=== PATIENT | male | born 1955 | race Caucasian/White ===

== ENCOUNTER → 2019-11-17 | Outpatient (CLI) | payer MEDICARE ==
--- NOTE | 2019-11-17 14:52 | Diagnostic Imaging Report ---
CT of the abdomen and pelvis, without contrast, 11/17/2019. History: Kidney stones, left testicular pain. Comparison: None available. Technique: Multidetector CT scanning of the abdomen and pelvis was performed from the level of the lung bases to the inferior pubic rami without intravenous or oral contrast. Coronal and sagittal multiplanar reformations were obtained. RADIATION DOSE: Total DLP: 397 mGy*cm Dose modulation, iterative reconstruction, and/or weight based adjustment of the mA/kV was utilized to reduce the radiation dose to as low as reasonably achievable. Discussion: Examination is limited without contrast. Lung bases: Emphysema and bilateral scarring is noted. Abdomen: A horseshoe kidney is present with multiple bilateral renal calculi, measuring up to 4 mm on the right and 9 mm on the left. Evaluation of the kidneys is limited due to metallic streak artifact from adjacent lumbar surgical hardware. There is no gross evidence of hydronephrosis. A 1.8 cm simple benign cyst is present in the right kidney. A 2.6 cm gallstone is noted. The liver, biliary tree, spleen, pancreas, and adrenal glands are unremarkable. The infrarenal abdominal aorta contains an aortic stent graft. Aortic diameter measures up to 2.1 cm, nonaneurysmal. There is no bowel dilatation. The appendix is visualized and is normal. Diverticuli are present within the distal colon without evidence of adjacent inflammation. There is no evidence of adenopathy or free fluid. Pelvis: The bladder, prostate, and seminal vesicles are unremarkable. Fat-containing bilateral inguinal hernias are present. There is no evidence of free fluid or adenopathy. Bones and soft tissues: Degenerative and postsurgical changes are present within the lumbar spine without evidence of lytic or sclerotic lesion. IMPRESSION: 1. Horseshoe kidney with bilateral renal calculi, left larger than right, without visible hydronephrosis, but evaluation of the kidneys is limited due to metallic streak artifact. Simple benign right renal cyst is also noted. 2. Cholelithiasis. 3. Aortic stent graft is present without evidence of aneurysm. 4. Colonic diverticulosis without evidence of diverticulitis. 5. Bilateral pulmonary emphysema and scarring. Signed by: Michael Boswell on 11/17/2019 2:49 PM
== END ==
LOC: CT 13:26
PROVIDERS: ATTEND Urology
DX: N20.0 Calculus of kidney (principal)
CPT/HCPCS: 74176

== ENCOUNTER → 2019-12-19 | Day surgery (SDC) | payer MEDICARE ==
[2019-12-12 14:54] LABS: BASOPHILS # (AUTO) 0.1 (0.0-0.1); BASOPHILS % 0.9 % (0.0-1.0); EOSINOPHILS # (AUTO) 0.3 (0.0-0.4); EOSINOPHILS % 3.7 % (0.0-6.0); HEMATOCRIT 50.3 % (38.2-49.6); HEMOGLOBIN 16.6 g/dL (14.0-18.0); LYMPHOCYTES % 26.7 % (18.0-39.1); MEAN CORPUSCULAR VOLUME 93.8 fL (81-99); MONOCYTES # (AUTO) 0.7 (0.2-0.8); MONOCYTES % 9.7 % (4.4-11.3); NEUTROPHILS # (AUTO) 4.5 (2.1-6.9); NEUTROPHILS % 58.7 % (38.7-80.0); PLATELET COUNT 221 x10e3/uL (140-360); RED BLOOD COUNT 5.36 x10e6/uL (4.3-5.7); RED CELL DISTRIBUTION WIDTH 13.1 % (11.7-14.4)
--- NOTE | 2019-12-12 15:39 | Diagnostic Imaging Report ---
EXAM: CHEST 2 VIEWS DATE: 12/12/2019 2:27 PM INDICATION: Preoperative evaluation COMPARISON: None FINDINGS: The trachea is midline. The lungs are symmetrically expanded without evidence for large focal consolidation, pneumothorax, or significant pleural effusion. The cardiomediastinal silhouette and pulmonary vasculature are within normal limits. Likely remote/chronic right-sided rib fracture noted. No acute osseous abnormality is identified. The surrounding soft tissues are unremarkable. IMPRESSION: No acute cardiopulmonary process identified. Signed by: Dr. Diony Cohen MD on 12/12/2019 3:36 PM
--- NOTE | 2019-12-12 15:44 | Diagnostic Imaging Report ---
EXAM: ABDOMEN-1VIEW (KUB) DATE: 12/12/2019 2:35 PM INDICATION: Preoperative evaluation. COMPARISON: CT from 11/17/2019 FINDINGS: Bowel gas pattern appears nonobstructive. In this patient with known horseshoe kidney and bilateral nephrolithiasis, there is a 11 mm calcification identified projecting over the left renal shadow. No radiographically evident right-sided renal calculi are appreciated. There are postsurgical changes of the lumbar spine. Stent graft noted within the infrarenal abdominal aorta. There are degenerative changes of the visualized spine. No acute osseous abnormality is identified. IMPRESSION: Left renal calculus. No radiographically evident right renal calculi appreciated. Signed by: Dr. Diony Cohen MD on 12/12/2019 3:41 PM
[~2019-12-19] MED LIST: ACETAMINOPHEN/CODEINE 300MG - 30MG TAB ONE; ASPIR 8181 MG PO; ATORVASTATIN CA20 MG PO; B&O 60MG R/S 60 MG SUPP PR ONE; CEFTRIAXONE SOD 1 GM/NS 50 ML 50 ML IV ONE; CLARITIN-D 241 EACH PO; DEXAMETHASONE SOD PHOS INJ 4 MG/ML VIAL ONE; EPHEDRINE SULFATE INJ 50 MG/ML VIAL ONE; FENTANYL CITRATE/PF 100MCG/2 ML INJ ONE; GABAPENTIN300 MG PO; IOPAMIDOL 300MG/ML 50ML INFUS..BTL IV ONE; LIDOCAINE HCL 2% JELLY 5 ML TUBE ONE; LIDOCAINE HCL 2% LOCAL INJ 5 ML SDV VIAL INJ ONE; METHADONE HCL10 MG PO; METOPROLOL SUCC25 MG PO; MIDAZOLAM HCL 2 MG/2 ML VIAL ONE; ONDANSETRON HCL INJ 2MG/ML 2ML 2 MG/ML VIAL ONE; PANTOPRAZOLE SO40 MG PO; PHENYLEPHRINE HCL 1% 10 MG/ML VIAL ONE; PLAVIX75 MG PO; PRO AIR INH; PROPOFOL IV EMULSION 10 MG/ML 20 ML VIAL ONE; TIZANIDINE HCL4 MG PO; [UNRECOGNIZED DRUG - OTHER] PO
--- OUTSIDE RECORDS SUMMARY | 2019-12-19 05:46 | XMS REPORT ---
[facility] Address Unknown Phone Unavailable Care Team Providers Care Collections Director Name Role Phone JULIO OCONNOR Unavailable Unavailable Payers Payer Name Policy Type Policy Number Effective Date Expiration Date Problems This patient has no known problems. Allergies, Adverse Reactions, Alerts Allergy Name Allergy Type Status Severity Reaction(s) Onset Date Inactive Date Treating Clinician Comments No Known Allergies DA Active U 2018-12-25 00:00:00 No Known Allergies DA Active U 2018-12-07 00:00:00 No Known Allergies DA Active U 2018-11-17 00:00:00 No Known Allergies DA Active U 2016-05-07 00:00:00 Medications This patient has no known medications. Results Test Description Test Time Test Comments Text Results Atomic Results Result Comments [facility] ([facility]) 2019-12-12 15:38:00 [place] [address] Patient Name: VIVIAN VELARDE MR #: [id number] : 1955 Age/Sex: 64/M Req #: [id number] Adm Physician: Ordered by: JULIO OCONNOR MD Report #: [id number] Location: OR Room/Bed: Procedure: [id number] DX/ABDOMEN-1VIEW (KUB) Exam Date: 12/12/19 Exam Time: 1440 REPORT STATUS: Signed EXAM: ABDOMEN-1VIEW (KUB) DATE: 12/12/2019 2:35 PM INDICATION: Preoperative evaluation. COMPARISON: CT from 11/17/2019 FINDINGS: Bowel gas pattern appears nonobstructive. In this patient with known horseshoe kidney and bilateral nephrolithiasis, there is a 11 mm calcification identified projecting over the left renal shadow. No radiographically evident right-sided renal calculi are appreciated. There are postsurgical changes of the lumbar spine. Stent graft noted within the infrarenal abdominal aorta. There are degenerative changes of the visualized spine. No acute osseous abnormality is identified. IMPRESSION: Left renal calculus. No radiographically evident right renal calculi appreciated. Signed by: Dr. Diony Cohen MD on 12/12/2019 3:41 PM Dictated By: DIONY COHEN MD 154 Transcribed By: GERARDO on 12/12/19 154 COPY TO: JULIO OCONNOR MD CHEST 2 VIEWS 2019-12-12 15:34:00 [place] [address] Patient Name: VIVIAN VELARDE MR #: [id number] : 1955 Age/Sex: 64/M Req #: [id number] Adm Physician: Ordered by: JULIO OCONNOR MD Report #: [id number] Location: OR Room/Bed: Procedure: [id number] DX/CHEST 2 VIEWS Exam Date: 12/12/19 Exam Time: 1440 REPORT STATUS: Signed EXAM: CHEST 2 VIEWS DATE: 12/12/2019 2:27 PM INDICATION: Preoperative evaluation COMPARISON: None FINDINGS: The trachea is midline. The lungs are symmetrically expanded without evidence for large focal consolidation, pneumothorax, or significant pleural effusion. The cardiomediastinal silhouette and pulmonary vasculature are within normal limits. Likely remote/chronic right-sided rib fracture noted. No acute osseous abnormality is identified. The surrounding soft tissues are unremarkable. IMPRESSION: No acute cardiopulmonary process identified. Signed by: Dr. Diony Cohen MD on 12/12/2019 3:36 PM Dictated By: DIONY COHEN MD 1536 Transcribed By: GERARDO on 12/12/19 1536 COPY TO: JULIO OCONNOR MD CT ABDOMEN/PELVIS WO 2019-11-17 14:38:00 [place] [address] Patient Name: ANT VELARDE MR #: [id number] : 1955 Age/Sex: 64/M Req #: [id number] [facility] Physician: Ordered by: JULIO OCONNOR MD Report #: [id number] Location: CT Room/Bed: Procedure: [id number] CT/CT ABDOMEN/PELVIS WO Exam Date: 11/17/19 Exam Time: 1400 REPORT STATUS: Signed CT of the abdomen and pelvis, without contrast, 11/17/2019. History: Kidney stones, left testicular pain. Comparison: None available. Technique: Multidetector CT scanning of the abdomen and pelvis was performed from the level of the lung bases to the inferior pubic rami without intravenous or oral contrast. Coronal and sagittal multiplanar reformations were obtained. RADIATION DOSE: Total DLP: 397 mGy*cm Dose modulation, iterative reconstruction, and/or weight based adjustment of the mA/kV was utilized to reduce the radiation dose to as low as reasonably achievable. Discussion: Examination is limited without contrast. Lung bases: Emphysema and bilateral scarring is noted. Abdomen: A horseshoe kidney is present with multiple bilateral renal calculi, measuring up to 4 mm on the right and 9 mm on the left. Evaluation of the kidneys is limited due to metallic streak artifact from adjacent lumbar surgical hardware. There is no gross evidence of hydronephrosis. A 1.8 cm simple benign cyst is present in the right kidney. A 2.6 cm gallstone is noted. The liver, biliary tree, spleen, pancreas, and adrenal glands are unremarkable. The infrarenal abdominal aorta contains an aortic stent graft. Aortic diameter measures up to 2.1 cm, nonaneurysmal. There is no bowel dilatation. The appendix is visualized and is normal. Diverticuli are present within the distal colon without evidence of adjacent inflammation. There is no evidence of adenopathy or free fluid. Pelvis: The bladder, prostate, and seminal vesicles are unremarkable. Fat-containing bilateral inguinal hernias are present. There is no evidence of free fluid or adenopathy. Bones and soft tissues: Degenerative and postsurgical changes are present within the lumbar spine without evidence of lytic or sclerotic lesion. IMPRESSION: 1. Horseshoe kidney with bilateral renal calculi, left larger than right, without visible hydronephrosis, but evaluation of the kidneys is limited due to metallic streak artifact. Simple benign right renal cyst is also noted. 2. Cholelithiasis. 3. Aortic stent graft is present without evidence of aneurysm. 4. Colonic diverticulosis without evidence of diverticulitis. 5. Bilateral pulmonary emphysema and scarring. Signed by: Michael Boswell on 11/17/2019 2:49 PM Dictated By: MICHAEL BOSWELL MD 9615 Transcribed By: GERARDO on 11/17/19 4627 COPY TO: JULIO OCONNOR MD COMPREHENSIVE METABOLIC PANEL 2019-06-21 06:34:00 SODIUM (test code=NA) 145 mmol/L 136-145 POTASSIUM (test code=K) 5.1 mmol/L 3.5-5.1 CHLORIDE (test code=CL) 114.0 mmol/L 98-107 CARBON DIOXIDE (test code=CO2) 21.0 mmol/L 21-32 ANION GAP (test code=GAP) 15.1 10-20 GLUCOSE (test code=GLU) 95 mg/dL 74-106 BLOOD UREA NITROGEN (test code=BUN) 45 mg/dL 7-18 RESULT VERIFIED BY REPEAT ANALYSIS GLOMERULAR FILTRATION RATE (test code=GFR) > 60 mL/min >=60 Estimated GFR by using Modified MDRD formula.Chronic kidney disease is defined as either kidney damageor GFR <60 mL/min/1.73 m2 for >3 months. CREATININE (test code=CREAT) 1.00 mg/dL 0.7-1.3 BUN/CREATININE RATIO (test code=BUN/CREA) 45.0 10-20 TOTAL PROTEIN (test code=PROT) 6.1 gram/dL 6.4-8.2 ALBUMIN (test code=ALB) 3.3 g/dL 3.4-5.0 GLOBULIN (test code=GLOB) 2.8 gram/dL 2.7-4.2 ALBUMIN/GLOBULIN RATIO (test code=A/G) 1.2 0.75-1.50 CALCIUM (test code=CA) 7.3 mg/dL 8.5-10.1 BILIRUBIN TOTAL (test code=BILT) 0.60 mg/dL 0.0-1.0 SGOT/AST (test code=AST) 25 IUnit/L 15-37 SGPT/ALT (test code=ALT) 28 IUnit/L 12-78 ALKALINE PHOSPHATASE TOTAL (test code=ALKP) 74 IUnit/L 45-117 Note change in reference range due to change in reagent. COMPREHENSIVE METABOLIC [id number] 05:52:00* Test Item Value Reference Range Comments SODIUM (test code=NA) 145 mmol/L 136-145 POTASSIUM (test code=K) 5.1 mmol/L 3.5-5.1 CHLORIDE (test code=CL) 114.0 mmol/L 98-107 CARBON DIOXIDE (test code=CO2) mmol/L 21-32 ANION GAP (test code=GAP) 10-20 GLUCOSE (test code=GLU) mg/dL 74-106 BLOOD UREA NITROGEN (test code=BUN) mg/dL 7-18 GLOMERULAR FILTRATION RATE (test code=GFR) mL/min >=60 CREATININE (test code=CREAT) mg/dL 0.7-1.3 BUN/CREATININE RATIO (test code=BUN/CREA) 10-20 TOTAL PROTEIN (test code=PROT) gram/dL 6.4-8.2 ALBUMIN (test code=ALB) g/dL 3.4-5.0 GLOBULIN (test code=GLOB) gram/dL 2.7-4.2 ALBUMIN/GLOBULIN RATIO (test code=A/G) 0.75-1.50 CALCIUM (test code=CA) mg/dL 8.5-10.1 BILIRUBIN TOTAL (test code=BILT) mg/dL 0.0-1.0 SGOT/AST (test code=AST) IUnit/L 15-37 SGPT/ALT (test code=ALT) IUnit/L 12-78 ALKALINE PHOSPHATASE TOTAL (test code=ALKP) IUnit/L 45-117 BASIC METABOLIC [id number] 00:39:00* Test Item Value Reference Range Comments SODIUM (test code=NA) 145 mmol/L 136-145 RESULT VERIFIED BY REPEAT ANALYSIS POTASSIUM (test code=K) 5.0 mmol/L 3.5-5.1 CHLORIDE (test code=CL) 114.0 mmol/L 98-107 CARBON DIOXIDE (test code=CO2) 22.0 mmol/L 21-32 ANION GAP (test code=GAP) 14.0 10-20 GLUCOSE (test code=GLU) 98 mg/dL 74-106 BLOOD UREA NITROGEN (test code=BUN) 57 mg/dL 7-18 RESULT VERIFIED BY REPEAT ANALYSIS GLOMERULAR FILTRATION RATE (test code=GFR) 52 mL/min >=60 Estimated GFR by using Modified MDRD formula.Chronic kidney disease is defined as either kidney damageor GFR <60 mL/min/1.73 m2 for >3 months. CREATININE (test code=CREAT) 1.40 mg/dL 0.7-1.3 BUN/CREATININE RATIO (test code=BUN/CREA) 40.7 10-20 CALCIUM (test code=CA) 7.5 mg/dL 8.5-10.1 BASIC METABOLIC [id number] 00:27:00* Test Item Value Reference Range Comments SODIUM (test code=NA) 145 mmol/L 136-145 RESULT VERIFIED BY REPEAT ANALYSIS POTASSIUM (test code=K) 5.0 mmol/L 3.5-5.1 CHLORIDE (test code=CL) 114.0 mmol/L 98-107 CARBON DIOXIDE (test code=CO2) 22.0 mmol/L 21-32 ANION GAP (test code=GAP) 14.0 10-20 GLUCOSE (test code=GLU) 98 mg/dL 74-106 BLOOD UREA NITROGEN (test code=BUN) 57 mg/dL 7-18 GLOMERULAR FILTRATION RATE (test code=GFR) 52 mL/min >=60 Estimated GFR by using Modified MDRD formula.Chronic kidney disease is defined as either kidney damageor GFR <60 mL/min/1.73 m2 for >3 months. CREATININE (test code=CREAT) 1.40 mg/dL 0.7-1.3 BUN/CREATININE RATIO (test code=BUN/CREA) 40.7 10-20 CALCIUM (test code=CA) 7.5 mg/dL 8.5-10.1 CBC W/AUTO [id number] 00:01:00* Test Item Value Reference Range Comments WHITE BLOOD CELL (test code=WBC) 8.0 K/mm3 4.5-12.5 RED BLOOD CELL (test code=RBC) 4.64 mill/mm3 4.0-5.8 HEMOGLOBIN (test code=HGB) 14.7 gram/dL 13.0-17.5 HEMATOCRIT (test code=HCT) 43.8 % 42.0-52.0 MEAN CELL VOLUME (test code=MCV) 94.4 fL 80-98 MEAN CELL HGB (test code=MCH) 31.7 picogram 27.0-33.0 MEAN CELL HGB CONCETRATION (test code=MCHC) 33.6 gram/dL 33.0-36.0 RED CELL DISTRIBUTION WIDTH (test code=RDW) 14.7 % 11.6-16.2 RED CELL DISTRIBUTION WIDTH SD (test code=RDW-SD) 51.3 fL 37.0-51.0 PLATELET COUNT (test code=PLT) 157 K/mm3 150-450 MEAN PLATELET VOLUME (test code=MPV) 9.8 fL 6.7-11.0 NEUTROPHIL % (test code=NT%) 76.5 % 39.0-69.0 IMMATURE GRANULOCYTE % (test code=IG%) 0.5 % 0.0-5.0 LYMPHOCYTE % (test code=LY%) 12.9 % 25.0-55.0 MONOCYTE % (test code=MO%) 9.0 % 0.0-10.0 EOSINOPHIL % (test code=EO%) 0.6 % 0.0-5.0 BASOPHIL % (test code=BA%) 0.5 % 0.0-1.0 NUCLEATED RBC % (test code=NRBC%) 0.0 % 0-0 NEUTROPHIL # (test code=NT#) 6.15 K/mm3 1.8-7.7 IMMATURE GRANULOCYTE # (test code=IG#) 0.04 x10 3/uL 0-0.03 LYMPHOCYTE # (test code=LY#) 1.04 K/mm3 1.0-5.0 MONOCYTE # (test code=MO#) 0.72 K/mm3 0-0.8 EOSINOPHIL # (test code=EO#) 0.05 K/mm3 0.0-0.5 BASOPHIL # (test code=BA#) 0.04 K/mm3 0.0-0.2 NUCLEATED RBC # (test code=NRBC#) 0.00 K/mm3 0.0-0.1 MANUAL DIFF REQUIRED (test code=MDIFF) NO - US RETROPERITONEAL [id number] 14:53:00 Name: ANT VELARDE [facility] : 1955 Age/S: 63 / M [address] [facility] Unit #: [id number] Loc: [place] [address] Phys: Suzy Benson MD Acct: [id number] Dis Date: Status: ADM IN PHONE #: [phone] Exam Date: 06/20/2019 1145 FAX #: [phone] Reason: Renal failure EXAMS: CPT CODE: [id number] US RETROPERITONEAL COM [id number] REASON FOR EXAM: Renal failure EXAM ORDER DATE: 06/20/2019 10:34 AM Attending Trino: Suzy Benson MD PROCEDURE: - US RETROPERITONEAL COM Comparison: Renal ultrasound May 08, 2016 is available for review FINDINGS: Right kidney: parenchyma echogenicity: Normal echogenicity size: 10.9 x 6.2 x 5.4 cm. stones: 6 mm stone is present in the midpole calyx. cysts/masses: Cortical cyst in the inferior pole with a single thin septation measures up to 2.8 cm in size. A second cyst in the midpole region with a single thin septation measures up to 2.3 cm in size. When compared to the prior exam these cysts demonstrate similar appearance. hydronephrosis: none Left kidney: parenchyma echogenicity: Normal echogenicity size: 14.7 x 6.9 x 5.6 cm. stones: none cysts/masses: none hydronephrosis: none Urinary Bladder: Ureteral jets: Not visualized I ntraluminal masses/debris: None Wall thickness: Normal Outpouching: None IMPRESSION: Minimally complex right-side d renal cysts are redemonstrated and grossly unchanged since 2016. These are likely benign and do not warrant further evaluation. Nonobs tructing right-sided renal stone measuring up to 6 mm. PAGE 1 Signed Report (CONTINUED) Name: ANT VELARDE MAC [facility] : 1955 Age/S: 63 / M [address] [facility] Unit #: [id number] Loc: [place] [address] Phys: Suzy Benson MD Acct: [id number] Dis Date: atus: ADM IN PHONE #: [phone] Exam Ramin e: 06/20/2019 1145 FAX #: [phone] Reason: Renal f ailure EXAMS: CPT CODE: [id number] [facility] [address] <Continued> at 1453 Reported and signed by: Lexa uMrphy MD CC: Suzy Benson MD; Terrence Whelan; Mellisa Chapman MD Technologist: ADRIEN ADEN(R),MARU Trniab Date/Time: 06/20/2019 (4743) [id number] Orig Print D/T: S: 06/20/2019 (9284) Probe: PAGE 2 Signed Report URINALYSIS [id number] 14:28:00* Test Item Value Reference Range Comments UA COLOR (test code=COLU) YELLOW YELLOW UA APPEARANCE (test code=APPU) CLEAR CLEAR UA GLUCOSE DIPSTICK (test code=DGLUU) NEGATIVE mg/dL NEGATIVE UA BILIRUBIN DIPSTICK (test code=BILU) NEGATIVE NEGATIVE UA KETONE DIPSTICK (test code=KETU) NEGATIVE mg/dL NEGATIVE UA SPECIFIC GRAVITY (test code=SGU) 1.010 1.001-1.035 UA BLOOD DIPSTICK (test code=HO) NEGATIVE NEGATIVE UA PH DIPSTICK (test code=MASHA) 5.5 5.0-8.0 UA PROTEIN DIPSTICK (test code=PROU) NEGATIVE mg/dL Neg-15 UA UROBILINIOGEN DIPSTICK (test code=URO) 0.2 mg/dL 0.0-0.2 UA NITRITE DIPSTICK (test code=RANDAL) NEGATIVE NEGATIVE UA LEUKOCYTE ESTERASE W REFLEX (test code=LEUUR) NEGATIVE NEGATIVE UA WBC (test code=WBCU) 0-5 per HPF 0-5 UA RBC (test code=RBCU) 0-2 #/HPF 0-5 UA EPITHELIAL CELLS (test code=EPIU) None seen per HPF Few UA BACTERIA (test code=BACU) FEW #/HPF NONE UA MUCUS (test code=MUCU) FEW #/LPF FEW SPECIMEN COMMENTS: FROM INITIAL BURTON INSERTIONUrine Source? CatheterURINALYSIS [id number] 14:27:00* Test Item Value Reference Range Comments UA COLOR (test code=COLU) YELLOW YELLOW UA APPEARANCE (test code=APPU) CLEAR CLEAR UA GLUCOSE DIPSTICK (test code=DGLUU) NEGATIVE mg/dL NEGATIVE UA BILIRUBIN DIPSTICK (test code=BILU) NEGATIVE NEGATIVE UA KETONE DIPSTICK (test code=KETU) NEGATIVE mg/dL NEGATIVE UA SPECIFIC GRAVITY (test code=SGU) 1.010 1.001-1.035 UA BLOOD DIPSTICK (test code=HO) NEGATIVE NEGATIVE UA PH DIPSTICK (test code=MASHA) 5.5 5.0-8.0 UA PROTEIN DIPSTICK (test code=PROU) NEGATIVE mg/dL Neg-15 UA UROBILINIOGEN DIPSTICK (test code=URO) 0.2 mg/dL 0.0-0.2 UA NITRITE DIPSTICK (test code=RANDAL) NEGATIVE NEGATIVE UA LEUKOCYTE ESTERASE W REFLEX (test code=LEUUR) NEGATIVE NEGATIVE UA WBC (test code=WBCU) 0-5 per HPF 0-5 UA RBC (test code=RBCU) 0-2 #/HPF 0-5 UA EPITHELIAL CELLS (test code=EPIU) per HPF Few UA BACTERIA (test code=BACU) FEW #/HPF NONE UA MUCUS (test code=MUCU) FEW #/LPF FEW SPECIMEN COMMENTS: FROM INITIAL BURTON INSERTIONUrine Source? CatheterURINALYSIS [id number] 14:20:00* Test Item Value Reference Range Comments UA COLOR (test code=COLU) YELLOW UA APPEARANCE (test code=APPU) CLEAR UA BILIRUBIN DIPSTICK (test code=BILU) NEGATIVE UA SPECIFIC GRAVITY (test code=SGU) 1.001-1.035 UA PH DIPSTICK (test code=MASHA) 5.0-8.0 UA UROBILINIOGEN DIPSTICK (test code=URO) mg/dL 0.0-0.2 UA NITRITE DIPSTICK (test code=RANDAL) NEGATIVE UA LEUKOCYTE ESTERASE W REFLEX (test code=LEUUR) NEGATIVE UA WBC (test code=WBCU) 0-5 per HPF 0-5 UA RBC (test code=RBCU) 0-2 #/HPF 0-5 UA EPITHELIAL CELLS (test code=EPIU) per HPF Few UA BACTERIA (test code=BACU) FEW #/HPF NONE UA MUCUS (test code=MUCU) FEW #/LPF FEW SPECIMEN COMMENTS: FROM INITIAL BURTON INSERTIONUrine Source? Catheter COMPREHENSIVE METABOLIC [id number] 13:09:00* Test Item Value Reference Range Comments SODIUM (test code=NA) 140 mmol/L 136-145 RESULT VERIFIED BY REPEAT ANALYSIS POTASSIUM (test code=K) 4.7 mmol/L 3.5-5.1 CHLORIDE (test code=CL) 107.0 mmol/L 98-107 CARBON DIOXIDE (test code=CO2) 21.0 mmol/L 21-32 ANION GAP (test code=GAP) 16.7 10-20 GLUCOSE (test code=GLU) 86 mg/dL 74-106 BLOOD UREA NITROGEN (test code=BUN) 87 mg/dL 7-18 GLOMERULAR FILTRATION RATE (test code=GFR) 16 mL/min >=60 Estimated GFR by using Modified MDRD formula.Chronic kidney disease is defined as either kidney damageor GFR <60 mL/min/1.73 m2 for >3 months. CREATININE (test code=CREAT) 3.80 mg/dL 0.7-1.3 BUN/CREATININE RATIO (test code=BUN/CREA) 23.0 10-20 TOTAL PROTEIN (test code=PROT) 5.5 gram/dL 6.4-8.2 ALBUMIN (test code=ALB) 3.1 g/dL 3.4-5.0 GLOBULIN (test code=GLOB) 2.4 gram/dL 2.7-4.2 ALBUMIN/GLOBULIN RATIO (test code=A/G) 1.3 0.75-1.50 CALCIUM (test code=CA) 7.1 mg/dL 8.5-10.1 BILIRUBIN TOTAL (test code=BILT) 0.50 mg/dL 0.0-1.0 SGOT/AST (test code=AST) 32 IUnit/L 15-37 SGPT/ALT (test code=ALT) 29 IUnit/L 12-78 ALKALINE PHOSPHATASE TOTAL (test code=ALKP) 70 IUnit/L 45-117 Note change in reference range due to change in reagent. URIC [id number] 12:53:00* Test Item Value Reference Range Comments URIC ACID (test code=URIC) 9.9 mg/dL 2.6-7.2 CPK-MB [id number] 12:53:00* Test Item Value Reference Range Comments CREATINE KINASE (CK) (test code=CK) 971 IUnit/L 26-208 CKMB (test code=CKMBT) 21.7 ng/mL 0-6.0 RELATIVE % INDEX (test code=REL%) 2.23 % 0.00-2.50 "If the total CK is elevated, the CKMB Fraction must beinterpreted as a Relative % Index, Normal is less than 2.5%"NOTE: Relative % Index is not valid with a normal total CK. CBC W/AUTO [id number] 12:21:00* Test Item Value Reference Range Comments WHITE BLOOD CELL (test code=WBC) 6.8 K/mm3 4.5-12.5 RED BLOOD CELL (test code=RBC) 4.45 mill/mm3 4.0-5.8 HEMOGLOBIN (test code=HGB) 14.0 gram/dL 13.0-17.5 HEMATOCRIT (test code=HCT) 42.6 % 42.0-52.0 MEAN CELL VOLUME (test code=MCV) 95.7 fL 80-98 MEAN CELL HGB (test code=MCH) 31.5 picogram 27.0-33.0 MEAN CELL HGB CONCETRATION (test code=MCHC) 32.9 gram/dL 33.0-36.0 RED CELL DISTRIBUTION WIDTH (test code=RDW) 14.8 % 11.6-16.2 RED CELL DISTRIBUTION WIDTH SD (test code=RDW-SD) 52.5 fL 37.0-51.0 PLATELET COUNT (test code=PLT) 133 K/mm3 150-450 MEAN PLATELET VOLUME (test code=MPV) 10.1 fL 6.7-11.0 NEUTROPHIL % (test code=NT%) 61.8 % 39.0-69.0 IMMATURE GRANULOCYTE % (test code=IG%) 0.6 % 0.0-5.0 LYMPHOCYTE % (test code=LY%) 23.1 % 25.0-55.0 MONOCYTE % (test code=MO%) 12.2 % 0.0-10.0 EOSINOPHIL % (test code=EO%) 1.6 % 0.0-5.0 BASOPHIL % (test code=BA%) 0.7 % 0.0-1.0 NUCLEATED RBC % (test code=NRBC%) 0.0 % 0-0 NEUTROPHIL # (test code=NT#) 4.20 K/mm3 1.8-7.7 IMMATURE GRANULOCYTE # (test code=IG#) 0.04 x10 3/uL 0-0.03 LYMPHOCYTE # (test code=LY#) 1.57 K/mm3 1.0-5.0 MONOCYTE # (test code=MO#) 0.83 K/mm3 0-0.8 EOSINOPHIL # (test code=EO#) 0.11 K/mm3 0.0-0.5 BASOPHIL # (test code=BA#) 0.05 K/mm3 0.0-0.2 NUCLEATED RBC # (test code=NRBC#) 0.00 K/mm3 0.0-0.1 MANUAL DIFF REQUIRED (test code=MDIFF) NO CBC W/AUTO [id number] 12:20:00* Test Item Value Reference Range Comments WHITE BLOOD CELL (test code=WBC) K/mm3 4.5-12.5 RED BLOOD CELL (test code=RBC) mill/mm3 4.0-5.8 HEMOGLOBIN (test code=HGB) 14.0 gram/dL 13.0-17.5 HEMATOCRIT (test code=HCT) 42.6 % 42.0-52.0 MEAN CELL VOLUME (test code=MCV) fL 80-98 MEAN CELL HGB (test code=MCH) picogram 27.0-33.0 MEAN CELL HGB CONCETRATION (test code=MCHC) gram/dL 33.0-36.0 RED CELL DISTRIBUTION WIDTH (test code=RDW) % 11.6-16.2 RED CELL DISTRIBUTION WIDTH SD (test code=RDW-SD) fL 37.0-51.0 PLATELET COUNT (test code=PLT) K/mm3 150-450 MEAN PLATELET VOLUME (test code=MPV) fL 6.7-11.0 NEUTROPHIL % (test code=NT%) % 39.0-69.0 IMMATURE GRANULOCYTE % (test code=IG%) % 0.0-5.0 LYMPHOCYTE % (test code=LY%) % 25.0-55.0 MONOCYTE % (test code=MO%) % 0.0-10.0 EOSINOPHIL % (test code=EO%) % 0.0-5.0 BASOPHIL % (test code=BA%) % 0.0-1.0 NEUTROPHIL # (test code=NT#) K/mm3 1.8-7.7 LYMPHOCYTE # (test code=LY#) K/mm3 1.0-5.0 MONOCYTE # (test code=MO#) K/mm3 0-0.8 EOSINOPHIL # (test code=EO#) K/mm3 0.0-0.5 BASOPHIL # (test code=BA#) K/mm3 0.0-0.2 SED RATE [id number] 09:45:00* Test Item Value Reference Range Comments SED RATE WESTERGREN (test code=SEDW) 8 mm/hr 0-15 SED [id number] 09:45:00* Test Item Value Reference Range Comments SED RATE (test code=SEDW) 8 mm/hr 0-15 WINTROBE METHOD: NORMAL RANGE FOR MEN: 0-9 MM/HR WOMAN: 0-20 MM/HR [facility] TV=[id number] REACTIVE [id number] 07:23:00* Test Item Value Reference Range Comments C REACTIVE PROTEIN (test code=CRP) 0.33 mg/dL 0-0.3 V.LAB.KAMALJIT 06/20/19 0707URINALYSIS [id number] 04:55:00* Test Item Value Reference Range Comments UA COLOR (test code=COLU) LIGHT YELLOW YELLOW UA APPEARANCE (test code=APPU) CLEAR CLEAR UA GLUCOSE DIPSTICK (test code=DGLUU) NEGATIVE mg/dL NEGATIVE UA BILIRUBIN DIPSTICK (test code=BILU) NEGATIVE NEGATIVE UA KETONE DIPSTICK (test code=KETU) NEGATIVE mg/dL NEGATIVE UA SPECIFIC GRAVITY (test code=SGU) 1.015 1.001-1.035 UA BLOOD DIPSTICK (test code=HO) NEGATIVE NEGATIVE UA PH DIPSTICK (test code=MASHA) 5.5 5.0-8.0 UA PROTEIN DIPSTICK (test code=PROU) NEGATIVE mg/dL Neg-15 UA UROBILINIOGEN DIPSTICK (test code=URO) 0.2 mg/dL 0.0-0.2 UA NITRITE DIPSTICK (test code=RANDAL) NEGATIVE NEGATIVE UA LEUKOCYTE ESTERASE W REFLEX (test code=LEUUR) NEGATIVE NEGATIVE UA WBC (test code=WBCU) 0-5 per HPF 0-5 UA RBC (test code=RBCU) 0-2 #/HPF 0-5 UA EPITHELIAL CELLS (test code=EPIU) None seen per HPF FEW UA BACTERIA (test code=BACU) FEW #/HPF NONE UA HYALINE CAST (test code=HYALU) 3-5 #/LPF 0-5 UA MUCUS (test code=MUCU) FEW #/LPF FEW Urine Source? Clean CatchDRUGS OF ABUSE SCREEN [id number] 04:55:00* Test Item Value Reference Range Comments URN COCAINE (test code=COCAURN) NEGATIVE <300 ng/mL URN CANNABINOIDS (test code=CANNABURN) NEGATIVE <50 ng/mL URN AMPHETAMINE (test code=AMPHETURN) NEGATIVE <1000 ng/mL URN BARBITURATE (test code=BARBITURN) NEGATIVE <200 ng/mL URN BENZODIAZEPINE (test code=BENZOURN) NEGATIVE <200 ng/mL URN OPIATES (test code=OPIATURN) NEGATIVE <300 ng/mL URN PHENCYCLIDINE (PCP) (test code=PHENCURN) NEGATIVE <25 ng/mL URN METHADONE (test code=METHAURN) POSITIVE <300 ng/mL This test provides only a preliminary test result. A morespecific alternate chemical method must be used in order toobtain a confirmed analytical result. Gas chromatography/mass spectrometry (GC/MS) is thepreferred confirmatory method. Other chemical confirmationmethods are available. Clinical consideration and professional judgment should be applied to any drug of abusetest result, particularly when preliminary positive resultsare used.Unconfirmed screening results must not be used fornon-medical purposes (e.g., employment testing, legaltesting). Urine Source? Clean CatchURINALYSIS [id number] 04:29:00* Test Item Value Reference Range Comments UA COLOR (test code=COLU) LIGHT YELLOW YELLOW UA APPEARANCE (test code=APPU) CLEAR CLEAR UA GLUCOSE DIPSTICK (test code=DGLUU) NEGATIVE mg/dL NEGATIVE UA BILIRUBIN DIPSTICK (test code=BILU) NEGATIVE NEGATIVE UA KETONE DIPSTICK (test code=KETU) NEGATIVE mg/dL NEGATIVE UA SPECIFIC GRAVITY (test code=SGU) 1.015 1.001-1.035 UA BLOOD DIPSTICK (test code=HO) NEGATIVE NEGATIVE UA PH DIPSTICK (test code=MASHA) 5.5 5.0-8.0 UA PROTEIN DIPSTICK (test code=PROU) NEGATIVE mg/dL Neg-15 UA UROBILINIOGEN DIPSTICK (test code=URO) 0.2 mg/dL 0.0-0.2 UA NITRITE DIPSTICK (test code=RANDAL) NEGATIVE NEGATIVE UA LEUKOCYTE ESTERASE W REFLEX (test code=LEUUR) NEGATIVE NEGATIVE UA WBC (test code=WBCU) per HPF 0-5 UA RBC (test code=RBCU) per HPF 0-5 UA EPITHELIAL CELLS (test code=EPIU) per HPF Few UA BACTERIA (test code=BACU) per HPF NONE Urine Source? Clean CatchDRUGS OF ABUSE SCREEN [id number] 04:29:00* Test Item Value Reference Range Comments URN COCAINE (test code=COCAURN) <300 ng/mL URN CANNABINOIDS (test code=CANNABURN) <50 ng/mL URN AMPHETAMINE (test code=AMPHETURN) <1000 ng/mL URN BARBITURATE (test code=BARBITURN) <200 ng/mL URN BENZODIAZEPINE (test code=BENZOURN) <200 ng/mL URN OPIATES (test code=OPIATURN) <300 ng/mL URN PHENCYCLIDINE (PCP) (test code=PHENCURN) <25 ng/mL URN METHADONE (test code=METHAURN) <300 ng/mL Urine Source? Clean CatchURINALYSIS [id number] 04:29:00* Test Item Value Reference Range Comments UA COLOR (test code=COLU) LIGHT YELLOW YELLOW UA APPEARANCE (test code=APPU) CLEAR CLEAR UA GLUCOSE DIPSTICK (test code=DGLUU) NEGATIVE mg/dL NEGATIVE UA BILIRUBIN DIPSTICK (test code=BILU) NEGATIVE NEGATIVE UA KETONE DIPSTICK (test code=KETU) NEGATIVE mg/dL NEGATIVE UA SPECIFIC GRAVITY (test code=SGU) 1.015 1.001-1.035 UA BLOOD DIPSTICK (test code=HO) NEGATIVE NEGATIVE UA PH DIPSTICK (test code=MASHA) 5.5 5.0-8.0 UA PROTEIN DIPSTICK (test code=PROU) NEGATIVE mg/dL Neg-15 UA UROBILINIOGEN DIPSTICK (test code=URO) 0.2 mg/dL 0.0-0.2 UA NITRITE DIPSTICK (test code=RANDAL) NEGATIVE NEGATIVE UA LEUKOCYTE ESTERASE W REFLEX (test code=LEUUR) NEGATIVE NEGATIVE UA WBC (test code=WBCU) 0-5 per HPF 0-5 UA RBC (test code=RBCU) 0-2 #/HPF 0-5 UA EPITHELIAL CELLS (test code=EPIU) None seen per HPF FEW UA BACTERIA (test code=BACU) FEW #/HPF NONE UA HYALINE CAST (test code=HYALU) 3-5 #/LPF 0-5 UA MUCUS (test code=MUCU) FEW #/LPF FEW Urine Source? Clean CatchDRUGS OF ABUSE SCREEN [id number] 04:29:00* Test Item Value Reference Range Comments URN COCAINE (test code=COCAURN) <300 ng/mL URN CANNABINOIDS (test code=CANNABURN) <50 ng/mL URN AMPHETAMINE (test code=AMPHETURN) <1000 ng/mL URN BARBITURATE (test code=BARBITURN) <200 ng/mL URN BENZODIAZEPINE (test code=BENZOURN) <200 ng/mL URN OPIATES (test code=OPIATURN) <300 ng/mL URN PHENCYCLIDINE (PCP) (test code=PHENCURN) <25 ng/mL URN METHADONE (test code=METHAURN) <300 ng/mL Urine Source? Clean CatchBASIC METABOLIC [id number] 00:45:00* Test Item Value Reference Range Comments SODIUM (test code=NA) 135 mmol/L 136-145 RESULT VERIFIED BY REPEAT ANALYSIS POTASSIUM (test code=K) 4.7 mmol/L 3.5-5.1 CHLORIDE (test code=CL) 100.0 mmol/L 98-107 CARBON DIOXIDE (test code=CO2) 22.0 mmol/L 21-32 ANION GAP (test code=GAP) 17.7 10-20 GLUCOSE (test code=GLU) 73 mg/dL 74-106 BLOOD UREA NITROGEN (test code=BUN) 97 mg/dL 7-18 GLOMERULAR FILTRATION RATE (test code=GFR) 8 mL/min >=60 Estimated GFR by using Modified MDRD formula.Chronic kidney disease is defined as either kidney damageor GFR <60 mL/min/1.73 m2 for >3 months. CREATININE (test code=CREAT) 7.10 mg/dL 0.7-1.3 BUN/CREATININE RATIO (test code=BUN/CREA) 13.7 10-20 CALCIUM (test code=CA) 6.6 mg/dL 8.5-10.1 CPK-MB [id number] 00:45:00* Test Item Value Reference Range Comments CREATINE KINASE (CK) (test code=CK) 1434 IUnit/L 26-208 CKMB (test code=CKMBT) 32.7 ng/mL 0-6.0 RELATIVE % INDEX (test code=REL%) 2.28 % 0.00-2.50 "If the total CK is elevated, the CKMB Fraction must beinterpreted as a Relative % Index, Normal is less than 2.5%"NOTE: Relative % Index is not valid with a normal total CK. CALCIUM [id number] 00:45:00* Test Item Value Reference Range Comments CALCIUM IONIZED (test code=TARA) 0.98 mmol/L 1.12-1.32 UR SMEAR EOSINOPHIL [id number] 00:44:00* Test Item Value Reference Range Comments UR SMEAR EOSINOPHIL COUNT (test code=EOSCTU) NONE SEEN per HPF NONE SEEN UR [id number] 00:44:00* Test Item Value Reference Range Comments UR NA,RANDOM (test code=MORRIS) 29 mmol/L 20-110 URINE K, RANDOM (test code=KU) 40.0 mmol/L 12-75 UR CHLORIDE RANDOM (test code=CLU) < 10 mEq/L UR SMEAR EOSINOPHIL [id number] 00:40:00* Test Item Value Reference Range Comments UR SMEAR EOSINOPHIL COUNT (test code=EOSCTU) NONE SEEN per HPF NONE SEEN UR [id number] 00:40:00* Test Item Value Reference Range Comments UR NA,RANDOM (test code=MORRIS) mmol/L 20-110 URINE K, RANDOM (test code=KU) mmol/L 12-75 UR CHLORIDE RANDOM (test code=CLU) mEq/L [id number] 00:38:00* Test Item Value Reference Range Comments PHOSPHORUS (test code=PHOS) 7.0 mg/dL 2.5-4.9 THYROID STIMULATING [id number] 00:38:00* Test Item Value Reference Range Comments THYROID STIMULATING HORMONE (test code=TSH) 0.113 uIU/mL 0.36-3.74 TSH REFERENCE RANGES: EUTHYROID: 0.35 - 4.3 mIU/mL HYPO : > 5.5 mIU/mL HYPER : < 0.35 mIU/mL CPK-MB [id number] 00:26:00* Test Item Value Reference Range Comments CREATINE KINASE (CK) (test code=CK) IUnit/L 26-208 CKMB (test code=CKMBT) ng/mL 0-6.0 RELATIVE % INDEX (test code=REL%) % 0.00-2.50 CALCIUM [id number] 00:26:00* Test Item Value Reference Range Comments CALCIUM IONIZED (test code=TARA) 0.98 mmol/L 1.12-1.32 PROTHROMBIN [id number] 00:26:00* Test Item Value Reference Range Comments PROTHROMBIN TIME PATIENT (test code=PTP) 11.2 seconds 9.0-14.0 INTERNATIONAL NORMAL RATIO (test code=INR) 0.9 0.8-1.2 The therapeutic range for oral anticoagulant therapy formost indications is an international normalized ratio (INR)of between 2.0 and 3.0. The recommended therapeutic INRrange for various clinical situations is listed below: Clinical Situation INR range Pulmonary e mbolism treatment (2.0-3.0)Venous thrombosis treatmentVenous thrombosis prophylaxis (high risk surgery)Prevention of systemic embolism from: Acute myocardial infarction Valvular heart disease Atrial fibrillation Mechanical prosthetic heart valves (2.5-3.5) IS PATIENT ON ANTICOAGULANTS? NCBC W/AUTO [id number] 00:12:00* Test Item Value Reference Range Comments WHITE BLOOD CELL (test code=WBC) 9.2 K/mm3 4.5-12.5 RED BLOOD CELL (test code=RBC) 4.54 mill/mm3 4.0-5.8 HEMOGLOBIN (test code=HGB) 14.4 gram/dL 13.0-17.5 HEMATOCRIT (test code=HCT) 43.0 % 42.0-52.0 MEAN CELL VOLUME (test code=MCV) 94.7 fL 80-98 MEAN CELL HGB (test code=MCH) 31.7 picogram 27.0-33.0 MEAN CELL HGB CONCETRATION (test code=MCHC) 33.5 gram/dL 33.0-36.0 RED CELL DISTRIBUTION WIDTH (test code=RDW) 14.9 % 11.6-16.2 RED CELL DISTRIBUTION WIDTH SD (test code=RDW-SD) 51.5 fL 37.0-51.0 PLATELET COUNT (test code=PLT) 149 K/mm3 150-450 MEAN PLATELET VOLUME (test code=MPV) 9.8 fL 6.7-11.0 NEUTROPHIL % (test code=NT%) 66.6 % 39.0-69.0 IMMATURE GRANULOCYTE % (test code=IG%) 0.3 % 0.0-5.0 LYMPHOCYTE % (test code=LY%) 22.5 % 25.0-55.0 MONOCYTE % (test code=MO%) 9.9 % 0.0-10.0 EOSINOPHIL % (test code=EO%) 0.5 % 0.0-5.0 BASOPHIL % (test code=BA%) 0.2 % 0.0-1.0 NUCLEATED RBC % (test code=NRBC%) 0.0 % 0-0 NEUTROPHIL # (test code=NT#) 6.10 K/mm3 1.8-7.7 IMMATURE GRANULOCYTE # (test code=IG#) 0.03 x10 3/uL 0-0.03 LYMPHOCYTE # (test code=LY#) 2.06 K/mm3 1.0-5.0 MONOCYTE # (test code=MO#) 0.91 K/mm3 0-0.8 EOSINOPHIL # (test code=EO#) 0.05 K/mm3 0.0-0.5 BASOPHIL # (test code=BA#) 0.02 K/mm3 0.0-0.2 NUCLEATED RBC # (test code=NRBC#) 0.00 K/mm3 0.0-0.1 MANUAL DIFF REQUIRED (test code=MDIFF) NO ARTERIAL BLOOD [id number] 23:20:00* Test Item Value Reference Range Comments ARTERIAL BLOOD GAS PH (test code=PHA) 7.19 7.35-7.45 Results called to and read back by MELLISA Fisher 23: - 06/19/2019; by [facility] ARTERIAL BLOOD GAS PCO2 (test code=PCO2A) 16.8 mm Hg 35-45 Results called to and read back by MELLISA Fisher 23: - 06/19/2019; by [facility] ARTERIAL BLOOD GAS PO2 (test code=PO2A) < 40.9 mmHg 80-100 Results called to and read back by MELLISA Fisher 23:06/19/2019; by [facility] CERTIFIED MASTER SAFECRACKER BICARBONATE TOTAL HCO3 (test code=HCO3) 6.3 mmol/L 23.0-27.0 Results called to and read back by MELLISA Fisher 23:06/19/2019; [facility] CERTIF[facility] MA[facility] SAFECRACKER BASE EXCESS (test code=BRALUIO) -20.1 mmol/L -3.0-5.0 Results called to and read back by MELLISA Fisher 23:06/19/2019; by [facility] CERTIFIED MASTER SAFECRACKER ABG O2 SATURATION (test code=SATA) 49.3 % 90.0-98.0 ABG TYPE (test code=TYPEA) Arterial FIO2 (test code=FIO2A) 21.0 ABG TEMPERATURE (test code=TEMPA) 37.0 Celsius ABG SITE (test code=SITEA) Rt RADIAL ARTERY MODIFIED ALLENS (test code=MODALL) Yes CHECK PERFORMED HEMATOCRIT (test code=HCT/ABG) 14 % 42-52 TOTAL HGB (test code=THB) 4.8 gram/dL 13.0-17.5 HGB O2 SAT (test code=HBOSAT) 48.7 % 94.00-98.00 CARBOXYHEMOGLOBIN (test code=HOHGBT) 0.3 %totalHg 0.5-1.5 Results called to and read back by MELLISA Fisher 23:06/19/2019; by [facility] CERTIFIED MASTER SAFECRACKER METHEMOGLOBIN (test code=METHGB) 0.9 % 0.0-1.50 URINALYSIS [id number] 23:13:00* Test Item Value Reference Range Comments UA COLOR (test code=COLU) YELLOW UA APPEARANCE (test code=APPU) CLEAR UA BILIRUBIN DIPSTICK (test code=BILU) NEGATIVE UA SPECIFIC GRAVITY (test code=SGU) 1.001-1.035 UA PH DIPSTICK (test code=MASHA) 5.0-8.0 UA UROBILINIOGEN DIPSTICK (test code=URO) mg/dL 0.0-0.2 UA NITRITE DIPSTICK (test code=RANDAL) NEGATIVE UA LEUKOCYTE ESTERASE W REFLEX (test code=LEUUR) NEGATIVE UA WBC (test code=WBCU) 0-5 per HPF 0-5 UA RBC (test code=RBCU) 3-5 #/HPF 0-5 UA EPITHELIAL CELLS (test code=EPIU) None seen per HPF FEW UA BACTERIA (test code=BACU) NONE SEEN #/HPF NONE UA HYALINE CAST (test code=HYALU) 11-20 #/LPF 0-5 UA MUCUS (test code=MUCU) FEW #/LPF FEW Urine Source? MidstreamURINALYSIS [id number] 23:13:00* Test Item Value Reference Range Comments UA COLOR (test code=COLU) LIGHT YELLOW YELLOW UA APPEARANCE (test code=APPU) CLEAR CLEAR UA GLUCOSE DIPSTICK (test code=DGLUU) NEGATIVE mg/dL NEGATIVE UA BILIRUBIN DIPSTICK (test code=BILU) NEGATIVE NEGATIVE UA KETONE DIPSTICK (test code=KETU) NEGATIVE mg/dL NEGATIVE UA SPECIFIC GRAVITY (test code=SGU) 1.025 1.001-1.035 UA BLOOD DIPSTICK (test code=HO) TRACE NEGATIVE UA PH DIPSTICK (test code=MASHA) 5.5 5.0-8.0 UA PROTEIN DIPSTICK (test code=PROU) TRACE (15) mg/dL Neg-15 UA UROBILINIOGEN DIPSTICK (test code=URO) 0.2 mg/dL 0.0-0.2 UA NITRITE DIPSTICK (test code=RANDAL) NEGATIVE NEGATIVE UA LEUKOCYTE ESTERASE W REFLEX (test code=LEUUR) NEGATIVE NEGATIVE UA WBC (test code=WBCU) 0-5 per HPF 0-5 UA RBC (test code=RBCU) 3-5 #/HPF 0-5 UA EPITHELIAL CELLS (test code=EPIU) None seen per HPF FEW UA BACTERIA (test code=BACU) NONE SEEN #/HPF NONE UA HYALINE CAST (test code=HYALU) 11-20 #/LPF 0-5 UA MUCUS (test code=MUCU) FEW #/LPF FEW Urine Source? MidstreamPROCALCITONIN (PCT)2019-06-19 22:19:00* Test Item Value Reference Range Comments PROCALCITONIN (PCT) (test code=PROCAL) 0.33 ng/ml Concentration Interpretation (ng/mL) <0.51 Sepsis is not likely. Local bacterial infection is possible. (LOW RISK for progression to Sepsis) 0.51 - 2.00 Sepsis is possible, but other conditions are known to elevate PCT as well. (MODERATE RISK for progression to Sepsis) > 2.00 Sepsis is likely, unless other causes are known. (HIGH RISK for progression to Severe Sepsis or Septic Shock) 10.00 High likelihood of Severe Sepsis or Septic or higher Shock. *Increased PCT levels may not always be related to systemic bacterial infection.*Low PCT levels do not automatically exclude the presence of bacterial infection.*All results should be interpreted taking into account the patients history. CREATINE KINASE (CK)2019-06-19 21:41:00* Test Item Value Reference Range Comments CREATINE KINASE (CK) (test code=CK) 1512 IUnit/L 26-208 HEPATIC FUNCTION [id number] 20:59:00* Test Item Value Reference Range Comments TOTAL PROTEIN (test code=PROT) 5.8 gram/dL 6.4-8.2 ALBUMIN (test code=ALB) 3.4 g/dL 3.4-5.0 GLOBULIN (test code=GLOB) 2.4 gram/dL 2.7-4.2 ALBUMIN/GLOBULIN RATIO (test code=A/G) 1.4 0.75-1.50 BILIRUBIN TOTAL (test code=BILT) 0.60 mg/dL 0.0-1.0 BILIRUBIN DIRECT (test code=BILD) 0.22 mg/dL 0.0-0.20 SGOT/AST (test code=AST) 40 IUnit/L 15-37 SGPT/ALT (test code=ALT) 31 IUnit/L 12-78 ALKALINE PHOSPHATASE TOTAL (test code=ALKP) 73 IUnit/L 45-117 Note change in reference range due to change in reagent. LACTIC [id number] 20:37:00* Test Item Value Reference Range Comments LACTIC ACID (test code=LACT) 0.7 mmol/L 0.4-1.9 POC LACTIC [id number] 20:22:00* Test Item Value Reference Range Comments POC LACTIC ACID (test code=POCLAC) 0.94 MMOL/L 0.4-2.2 BASIC METABOLIC [id number] 18:14:00* Test Item Value Reference Range Comments SODIUM (test code=NA) 129 mmol/L 136-145 POTASSIUM (test code=K) 5.8 mmol/L 3.5-5.1 CHLORIDE (test code=CL) 94.0 mmol/L 98-107 CARBON DIOXIDE (test code=CO2) 17.0 mmol/L 21-32 ANION GAP (test code=GAP) 23.8 10-20 GLUCOSE (test code=GLU) 79 mg/dL 74-106 BLOOD UREA NITROGEN (test code=BUN) 107 mg/dL 7-18 GLOMERULAR FILTRATION RATE (test code=GFR) 6 mL/min >=60 Estimated GFR by using Modified MDRD formula.Chronic kidney disease is defined as either kidney damageor GFR <60 mL/min/1.73 m2 for >3 months. CREATININE (test code=CREAT) 8.90 mg/dL 0.7-1.3 BUN/CREATININE RATIO (test code=BUN/CREA) 12.0 10-20 CALCIUM (test code=CA) 7.0 mg/dL 8.5-10.1 [id number] 18:14:00* Test Item Value Reference Range Comments TROPONIN-I (test code=TROPI) <0.015 ng/mL 0-0.045 BASIC METABOLIC [id number] 18:05:00* Test Item Value Reference Range Comments SODIUM (test code=NA) 129 mmol/L 136-145 POTASSIUM (test code=K) 5.8 mmol/L 3.5-5.1 CHLORIDE (test code=CL) 94.0 mmol/L 98-107 CARBON DIOXIDE (test code=CO2) mmol/L 21-32 ANION GAP (test code=GAP) 10-20 GLUCOSE (test code=GLU) mg/dL 74-106 BLOOD UREA NITROGEN (test code=BUN) mg/dL 7-18 GLOMERULAR FILTRATION RATE (test code=GFR) mL/min >=60 CREATININE (test code=CREAT) mg/dL 0.7-1.3 BUN/CREATININE RATIO (test code=BUN/CREA) 10-20 CALCIUM (test code=CA) mg/dL 8.5-10.1 [id number] 18:05:00* Test Item Value Reference Range Comments TROPONIN-I (test code=TROPI) ng/mL 0-0.045 B-TYPE NATRIURETIC [id number] 16:36:00* Test Item Value Reference Range Comments B-TYPE NATRIURETIC PEPTIDE (test code=BNP) 5.39 pgram/mL 0-100 CBC W/O [id number] 16:01:00* Test Item Value Reference Range Comments WHITE BLOOD CELL (test code=WBC) 11.8 K/mm3 4.5-12.5 RED BLOOD CELL (test code=RBC) 5.01 mill/mm3 4.0-5.8 HEMOGLOBIN (test code=HGB) 16.0 gram/dL 13.0-17.5 HEMATOCRIT (test code=HCT) 45.8 % 42.0-52.0 MEAN CELL VOLUME (test code=MCV) 91.4 fL 80-98 MEAN CELL HGB (test code=MCH) 31.9 picogram 27.0-33.0 MEAN CELL HGB CONCETRATION (test code=MCHC) 34.9 gram/dL 33.0-36.0 RED CELL DISTRIBUTION WIDTH (test code=RDW) 14.7 % 11.6-16.2 PLATELET COUNT (test code=PLT) 187 K/mm3 150-450 MEAN PLATELET VOLUME (test code=MPV) 10.5 fL 6.7-11.0 CBC W/O [id number] 15:59:00* Test Item Value Reference Range Comments WHITE BLOOD CELL (test code=WBC) K/mm3 4.5-12.5 RED BLOOD CELL (test code=RBC) mill/mm3 4.0-5.8 HEMOGLOBIN (test code=HGB) 16.0 gram/dL 13.0-17.5 HEMATOCRIT (test code=HCT) 45.8 % 42.0-52.0 MEAN CELL VOLUME (test code=MCV) fL 80-98 MEAN CELL HGB (test code=MCH) picogram 27.0-33.0 MEAN CELL HGB CONCETRATION (test code=MCHC) gram/dL 33.0-36.0 RED CELL DISTRIBUTION WIDTH (test code=RDW) % 11.6-16.2 PLATELET COUNT (test code=PLT) K/mm3 150-450 MEAN PLATELET VOLUME (test code=MPV) fL 6.7-11.0 - CT HEAD/BRAIN W/O [id number] 15:04:00 Name: ANT VELARDE JR [facility] : 1955 Age/S: 63 / M [address] Unit #: [id number] Loc: [place] [address] Phys: Syd Aguilera MD Acct: [id number] Dis Date: Status: REG ER PHONE #: [phone] Exam Date: 06/19/2019 1445 FAX #: [phone] Reason: Syncope EXAMS: CPT CODE: [id number] CT HEAD/BRAIN W/O CONT [id number] REASON FOR EXAM: Syncope EXAM ORDER DATE: 06/19/2019 2:34 PM Ordering MEmily: Syd Aguilera MD PROCEDURE: - CT HEAD/BRAIN W/O CONT COMPARISON: 12/27/2018 FINDINGS: CT images of the brain were obtained without IV contrast. Dose modulation, iterative reconstruction, and/or weight based adjustment of the MA/KV was utilized to reduce the radiation dose to as low as reasonably achievable. The brain parenchyma is within normal limits. The sampson-white matter delineation is unremarkable. The ventricles, cisterns, and sulci are unremarkable. There is no evidence of hemorrhage, mass, mass effect. There is no evidence of acute or old infarct. The calvarium is intact. IMPRESSION: Unremarkable brain. at 1504 Reported and signed by: Florentino Vaughan M.D. CC: Syd Aguilera MD; Terrence Whelan Technologist:Tram Victor RT(R)(CT) CTDI: DLP: Trnscb Da te/Time: 06/19/2019 (0421) t.SDR.VTL Orig Print D/T: S: 0 06/19/2019 (3109) PAGE 1 Signed Report - XR CHEST 1 [id number] 15:01:00 FAX: Syd Aguilera MD [phone] [place]: [address] St: REG FAX: Terrence Espinoza [phone] Name: ANT VELARDE JR [facility] : 1955 Age/S: 63/M [address] [facility] Unit #: [id number] Loc: [place] [address] Phys: Syd Aguilera MD Acct: [id number] Dis Date: Status: REG ER PHONE #: [phone] Exam Date: 06/19/2019 1450 FAX #: [phone] Reason: SYNCOPE EXAMS: CPT CODE: [id number] XR CHEST 1 V [id number] REASON FOR EXAM: SYNCOPE EXAM ORDER DATE: 06/19/2019 2:34 PM Ordering M.D.: Syd Aguilera MD PROCEDURE: - XR CHEST 1 V COMPARISON: FINDINGS: Po rtable AP frontal view of the chest obtained at 2:52 PM shows clear lungs without evidence of consolidation. There is no evidence of effusion. The h eart size is within normal limits. Pulmonary vasculatures are unremarkable . Chronic posterior right eighth-ninth rib fractures. IMP RESSION: Hyperinflated lungs suggestive of COPD Electronically Poppy d by Trino Vaughan on 06/19/2019 at 1501 Reported and sig kandice by: Florentino Vaughan M.D. CC: Syd Aguilera MD; Terernce Whelan Technologist: OTF MOE Trnscrd Date/Time/By: 06/19/2019 (6627) : By: ClemL Orig Print D/T: S: 06/19/2019 (4492) PAGE 1 Signed Report BASIC METABOLIC [id number] 05:55:00* Test Item Value Reference Range Comments SODIUM (test code=NA) 138 mmol/L 136-145 POTASSIUM (test code=K) 4.3 mmol/L 3.5-5.1 CHLORIDE (test code=CL) 107.0 mmol/L 98-107 CARBON DIOXIDE (test code=CO2) 26.0 mmol/L 21-32 ANION GAP (test code=GAP) 9.3 10-20 GLUCOSE (test code=GLU) 99 mg/dL 74-106 BLOOD UREA NITROGEN (test code=BUN) 19 mg/dL 7-18 GLOMERULAR FILTRATION RATE (test code=GFR) > 60 mL/min >=60 Estimated GFR by using Modified MDRD formula.Chronic kidney disease is defined as either kidney damageor GFR <60 mL/min/1.73 m2 for >3 months. CREATININE (test code=CREAT) 0.70 mg/dL 0.7-1.3 BUN/CREATININE RATIO (test code=BUN/CREA) 27.1 10-20 CALCIUM (test code=CA) 7.8 mg/dL 8.5-10.1 BASIC METABOLIC [id number] 05:48:00* Test Item Value Reference Range Comments SODIUM (test code=NA) 138 mmol/L 136-145 POTASSIUM (test code=K) 4.3 mmol/L 3.5-5.1 CHLORIDE (test code=CL) 107.0 mmol/L 98-107 CARBON DIOXIDE (test code=CO2) mmol/L 21-32 ANION GAP (test code=GAP) 10-20 GLUCOSE (test code=GLU) mg/dL 74-106 BLOOD UREA NITROGEN (test code=BUN) mg/dL 7-18 GLOMERULAR FILTRATION RATE (test code=GFR) mL/min >=60 CREATININE (test code=CREAT) mg/dL 0.7-1.3 BUN/CREATININE RATIO (test code=BUN/CREA) 10-20 CALCIUM (test code=CA) mg/dL 8.5-10.1 [id number] 21:02:00* Test Item Value Reference Range Comments GLUBED (test code=GLUBED) 126 mg/dL 74-106 Performed by certified beater machine operator at [facility] - CT HEAD/BRAIN W/O [id number] 18:02:00 Name: ANT VELARDE [facility] : 1955 Age/S: 63 / M [address] [facility] Unit #: [id number] Loc: [place] [address] Phys: Priscilla Mohamud MD Acct: [id number] Dis Date: Status: ADM IN PHONE #: [phone] Exam Date: 12/27/2018 1754 FAX #: [phone] Reason: syncope EXAMS: CPT CODE: [id number] CT HEAD/BRAIN W/O CONT [id number] HISTORY: syncope TECHNIQUE: Noncontrast 2.[address] of the head. Examination acquired within 24 hours of arrival. Automated exposure control for dose reduction. COMPARISON: None FINDINGS: No acute hemorrhage. No intracranial mass, mass effect, or midline shift. No CT evidence of acute infarct. Sampson-white matter differentiation is preserved. No hydrocephalus. No extra-axial fluid collection. Visualized paranasal sinuses are clear. Mastoid air cells and middle ear cavities are clear. Orbital contents are unremarkable. Calvarium and skull base are intact. IMPRESSION: No acute intracranial abnormality. at 1802 Reported and signed by: Malachi Tanner M.D. CC: Priscilla Mohamud MD; Terrence Whelan; Rakan Woodard Si, MD Technologist:Zee Forman cia RT(R) CTDI: DLP: Trnscb Date/Time: 12/27/2018 (1801 ) t.SDR.PB10 Orig Print D/T: S: 12/27/2018 (1804) CT DI: DLP: PAGE 1 Signed Report [id number] 16:11:00* Test Item Value Reference Range Comments GLUBED (test code=GLUBED) 124 mg/dL 74-106 Performed by certified beater machine operator at [facility] CBC W/MANUAL [id number] 06:28:00* Test Item Value Reference Range Comments WHITE BLOOD CELL (test code=WBC) 4.5 K/mm3 4.5-12.5 RED BLOOD CELL (test code=RBC) 4.11 mill/mm3 4.0-5.8 HEMOGLOBIN (test code=HGB) 12.7 gram/dL 13.0-17.5 HEMATOCRIT (test code=HCT) 39.5 % 42.0-52.0 MEAN CELL VOLUME (test code=MCV) 96.1 fL 80-98 MEAN CELL HGB (test code=MCH) 30.9 picogram 27.0-33.0 MEAN CELL HGB CONCETRATION (test code=MCHC) 32.2 gram/dL 33.0-36.0 RED CELL DISTRIBUTION WIDTH (test code=RDW) 13.5 % 11.6-16.2 RED CELL DISTRIBUTION WIDTH SD (test code=RDW-SD) 47.8 fL 37.0-51.0 PLATELET COUNT (test code=PLT) 126 K/mm3 150-450 MEAN PLATELET VOLUME (test code=MPV) 10.4 fL 6.7-11.0 IMMATURE GRANULOCYTE % (test code=IG%) 0.4 % 0.0-5.0 NUCLEATED RBC % (test code=NRBC%) 0.0 % 0-0 NEUTROPHIL # (test code=NT#) 2.67 K/mm3 1.8-7.7 IMMATURE GRANULOCYTE # (test code=IG#) 0.02 x10 3/uL 0-0.03 LYMPHOCYTE # (test code=LY#) 1.42 K/mm3 1.0-5.0 MONOCYTE # (test code=MO#) 0.34 K/mm3 0-0.8 EOSINOPHIL # (test code=EO#) 0.07 K/mm3 0.0-0.5 BASOPHIL # (test code=BA#) 0.02 K/mm3 0.0-0.2 NUCLEATED RBC # (test code=NRBC#) 0.00 K/mm3 0.0-0.1 MANUAL DIFF REQUIRED (test code=MDIFF) YES STAIN ACCEPTABILITY (test code=STN ACCEPTABLE) STAIN ACCEPTABLE TOTAL CELLS COUNTED (test code=TCC) 115 #CELLS SEGMENTED NEUTROPHILS (test code=SEG) 62.6 % 39-69 BAND NEUTROPHIL (test code=BAND) 0 % 0-10 LYMPHOCYTE (test code=LYMPH) 30.4 % 25-55 REACTIVE LYMPH (test code=RELYMPH) 0 % MONOCYTE (test code=MON) 3.5 % 0-10 EOSINOPHIL (test code=EOS) 0.9 % 0.0-5.0 BASOPHIL (test code=BASO) 0 % 0-1.0 METAMYELOCYTE (test code=META) 0 % 0-0 MYELOCYTE (test code=MYELO) 1.7 % 0.0-0.0 PROMYELOCYTE (test code=PROM) 0 % 0-0 PLATELET ESTIMATE (test code=PLTEST) ADEQUATE PLATELET MORPHOLOGY (test code=PLTMORPH) NORMAL IMMATURE FORMS (test code=IMMAT) 0.9 % COMPREHENSIVE METABOLIC [id number] 05:52:00* Test Item Value Reference Range Comments SODIUM (test code=NA) 137 mmol/L 136-145 POTASSIUM (test code=K) 4.3 mmol/L 3.5-5.1 CHLORIDE (test code=CL) 107.0 mmol/L 98-107 CARBON DIOXIDE (test code=CO2) 23.0 mmol/L 21-32 ANION GAP (test code=GAP) 11.3 10-20 GLUCOSE (test code=GLU) 95 mg/dL 74-106 BLOOD UREA NITROGEN (test code=BUN) 15 mg/dL 7-18 GLOMERULAR FILTRATION RATE (test code=GFR) > 60 mL/min >=60 Estimated GFR by using Modified MDRD formula.Chronic kidney disease is defined as either kidney damageor GFR <60 mL/min/1.73 m2 for >3 months. CREATININE (test code=CREAT) 0.80 mg/dL 0.7-1.3 BUN/CREATININE RATIO (test code=BUN/CREA) 18.8 10-20 TOTAL PROTEIN (test code=PROT) 5.5 gram/dL 6.4-8.2 ALBUMIN (test code=ALB) 2.6 g/dL 3.4-5.0 GLOBULIN (test code=GLOB) 2.9 gram/dL 2.7-4.2 ALBUMIN/GLOBULIN RATIO (test code=A/G) 0.9 0.75-1.50 CALCIUM (test code=CA) 7.8 mg/dL 8.5-10.1 BILIRUBIN TOTAL (test code=BILT) 0.40 mg/dL 0.0-1.0 SGOT/AST (test code=AST) 44 IUnit/L 15-37 SGPT/ALT (test code=ALT) 63 IUnit/L 12-78 ALKALINE PHOSPHATASE TOTAL (test code=ALKP) 85 IUnit/L 45-117 Note change in reference range due to change in reagent. LIPID PROFILE (CORONARY RISK)2018-12-27 05:52:00* Test Item Value Reference Range Comments TRIGLYCERIDES (test code=TRIG) 106 mg/dL 20-150 CHOLESTEROL (test code=CHOL) 57 mg/dL 0-200 CHOLESTEROL/HDL RATIO (test code=CHOLHDL) 2.0 RATIO 0-4.9 RISK ASSOCIATED WITH CHOL/HDL RATIOS: Risk Male Female1/2 AVERAGE 3.43 3.27AVERAGE 4.97 4.442X AVERAGE 9.55 7.053X AVERAGE 23.39 11.04 REFERENCE VALUE IS RELATED TO RISK LEVELS ASRECOMMENDED BY THE [facility]. HEART, LUNG, AND BLOOD INST. HDL CHOLESTEROL (test code=HDL) 20 mg/dL 40-60 LIPOPROTEIN LDL (test code=LDL) 35 mg/dL 100-129 Reference Interval: mg/dL mmol/L Optimal <100 <2.6Near/above optimal 100-129 2.6- 3.3Borderline High 130-159 3.4-4.1High 160-189 4.1-4.9Very High >=190 >=4.9=========This LDL result is a direct measurement.========= THYROID STIMULATING [id number] 05:52:00* Test Item Value Reference Range Comments THYROID STIMULATING HORMONE (test code=TSH) 1.380 uIU/mL 0.36-3.74 TSH REFERENCE RANGES: EUTHYROID: 0.35 - 4.3 mIU/mL HYPO : > 5.5 mIU/mL HYPER : < 0.35 mIU/mL COMPREHENSIVE METABOLIC [id number] 05:32:00* Test Item Value Reference Range Comments SODIUM (test code=NA) 137 mmol/L 136-145 POTASSIUM (test code=K) 4.3 mmol/L 3.5-5.1 CHLORIDE (test code=CL) 107.0 mmol/L 98-107 CARBON DIOXIDE (test code=CO2) mmol/L 21-32 ANION GAP (test code=GAP) 10-20 GLUCOSE (test code=GLU) mg/dL 74-106 BLOOD UREA NITROGEN (test code=BUN) mg/dL 7-18 GLOMERULAR FILTRATION RATE (test code=GFR) mL/min >=60 CREATININE (test code=CREAT) mg/dL 0.7-1.3 BUN/CREATININE RATIO (test code=BUN/CREA) 10-20 TOTAL PROTEIN (test code=PROT) gram/dL 6.4-8.2 ALBUMIN (test code=ALB) g/dL 3.4-5.0 GLOBULIN (test code=GLOB) gram/dL 2.7-4.2 ALBUMIN/GLOBULIN RATIO (test code=A/G) 0.75-1.50 CALCIUM (test code=CA) mg/dL 8.5-10.1 BILIRUBIN TOTAL (test code=BILT) mg/dL 0.0-1.0 SGOT/AST (test code=AST) IUnit/L 15-37 SGPT/ALT (test code=ALT) IUnit/L 12-78 ALKALINE PHOSPHATASE TOTAL (test code=ALKP) IUnit/L 45-117 LIPID PROFILE (CORONARY RISK)2018-12-27 05:32:00* Test Item Value Reference Range Comments TRIGLYCERIDES (test code=TRIG) mg/dL 20-150 CHOLESTEROL (test code=CHOL) mg/dL 0-200 CHOLESTEROL/HDL RATIO (test code=CHOLHDL) RATIO 0-4.9 HDL CHOLESTEROL (test code=HDL) mg/dL 40-60 LIPOPROTEIN LDL (test code=LDL) mg/dL 100-129 THYROID STIMULATING [id number] 05:32:00* Test Item Value Reference Range Comments THYROID STIMULATING HORMONE (test code=TSH) uIU/mL 0.36-3.74 CBC W/MANUAL [id number] 05:21:00* Test Item Value Reference Range Comments WHITE BLOOD CELL (test code=WBC) 4.5 K/mm3 4.5-12.5 RED BLOOD CELL (test code=RBC) 4.11 mill/mm3 4.0-5.8 HEMOGLOBIN (test code=HGB) 12.7 gram/dL 13.0-17.5 HEMATOCRIT (test code=HCT) 39.5 % 42.0-52.0 MEAN CELL VOLUME (test code=MCV) 96.1 fL 80-98 MEAN CELL HGB (test code=MCH) 30.9 picogram 27.0-33.0 MEAN CELL HGB CONCETRATION (test code=MCHC) 32.2 gram/dL 33.0-36.0 RED CELL DISTRIBUTION WIDTH (test code=RDW) 13.5 % 11.6-16.2 RED CELL DISTRIBUTION WIDTH SD (test code=RDW-SD) 47.8 fL 37.0-51.0 PLATELET COUNT (test code=PLT) 126 K/mm3 150-450 MEAN PLATELET VOLUME (test code=MPV) 10.4 fL 6.7-11.0 IMMATURE GRANULOCYTE % (test code=IG%) 0.4 % 0.0-5.0 NUCLEATED RBC % (test code=NRBC%) 0.0 % 0-0 NEUTROPHIL # (test code=NT#) 2.67 K/mm3 1.8-7.7 IMMATURE GRANULOCYTE # (test code=IG#) 0.02 x10 3/uL 0-0.03 LYMPHOCYTE # (test code=LY#) 1.42 K/mm3 1.0-5.0 MONOCYTE # (test code=MO#) 0.34 K/mm3 0-0.8 EOSINOPHIL # (test code=EO#) 0.07 K/mm3 0.0-0.5 BASOPHIL # (test code=BA#) 0.02 K/mm3 0.0-0.2 NUCLEATED RBC # (test code=NRBC#) 0.00 K/mm3 0.0-0.1 MANUAL DIFF REQUIRED (test code=MDIFF) YES STAIN ACCEPTABILITY (test code=STN ACCEPTABLE) TOTAL CELLS COUNTED (test code=TCC) #CELLS SEGMENTED NEUTROPHILS (test code=SEG) % 39-69 LYMPHOCYTE (test code=LYMPH) % 25-55 MONOCYTE (test code=MON) % 0-10 EOSINOPHIL (test code=EOS) % 0.0-5.0 CABOT RINGS (test code=CAB) MORPHOLOGY COMMENT (test code=MOC) PLATELET ESTIMATE (test code=PLTEST) PLATELET MORPHOLOGY (test code=PLTMORPH) CBC W/MANUAL [id number] 05:21:00* Test Item Value Reference Range Comments WHITE BLOOD CELL (test code=WBC) 4.5 K/mm3 4.5-12.5 RED BLOOD CELL (test code=RBC) 4.11 mill/mm3 4.0-5.8 HEMOGLOBIN (test code=HGB) 12.7 gram/dL 13.0-17.5 HEMATOCRIT (test code=HCT) 39.5 % 42.0-52.0 MEAN CELL VOLUME (test code=MCV) 96.1 fL 80-98 MEAN CELL HGB (test code=MCH) 30.9 picogram 27.0-33.0 MEAN CELL HGB CONCETRATION (test code=MCHC) 32.2 gram/dL 33.0-36.0 RED CELL DISTRIBUTION WIDTH (test code=RDW) 13.5 % 11.6-16.2 RED CELL DISTRIBUTION WIDTH SD (test code=RDW-SD) 47.8 fL 37.0-51.0 PLATELET COUNT (test code=PLT) 126 K/mm3 150-450 MEAN PLATELET VOLUME (test code=MPV) 10.4 fL 6.7-11.0 IMMATURE GRANULOCYTE % (test code=IG%) 0.4 % 0.0-5.0 NUCLEATED RBC % (test code=NRBC%) 0.0 % 0-0 NEUTROPHIL # (test code=NT#) 2.67 K/mm3 1.8-7.7 IMMATURE GRANULOCYTE # (test code=IG#) 0.02 x10 3/uL 0-0.03 LYMPHOCYTE # (test code=LY#) 1.42 K/mm3 1.0-5.0 MONOCYTE # (test code=MO#) 0.34 K/mm3 0-0.8 EOSINOPHIL # (test code=EO#) 0.07 K/mm3 0.0-0.5 BASOPHIL # (test code=BA#) 0.02 K/mm3 0.0-0.2 NUCLEATED RBC # (test code=NRBC#) 0.00 K/mm3 0.0-0.1 MANUAL DIFF REQUIRED (test code=MDIFF) YES STAIN ACCEPTABILITY (test code=STN ACCEPTABLE) TOTAL CELLS COUNTED (test code=TCC) #CELLS SEGMENTED NEUTROPHILS (test code=SEG) % 39-69 LYMPHOCYTE (test code=LYMPH) % 25-55 MONOCYTE (test code=MON) % 0-10 EOSINOPHIL (test code=EOS) % 0.0-5.0 CABOT RINGS (test code=CAB) MORPHOLOGY COMMENT (test code=MOC) PLATELET ESTIMATE (test code=PLTEST) PLATELET MORPHOLOGY (test code=PLTMORPH) CBC W/MANUAL [id number] 05:21:00* Test Item Value Reference Range Comments WHITE BLOOD CELL (test code=WBC) 4.5 K/mm3 4.5-12.5 RED BLOOD CELL (test code=RBC) 4.11 mill/mm3 4.0-5.8 HEMOGLOBIN (test code=HGB) 12.7 gram/dL 13.0-17.5 HEMATOCRIT (test code=HCT) 39.5 % 42.0-52.0 MEAN CELL VOLUME (test code=MCV) 96.1 fL 80-98 MEAN CELL HGB (test code=MCH) 30.9 picogram 27.0-33.0 MEAN CELL HGB CONCETRATION (test code=MCHC) 32.2 gram/dL 33.0-36.0 RED CELL DISTRIBUTION WIDTH (test code=RDW) 13.5 % 11.6-16.2 RED CELL DISTRIBUTION WIDTH SD (test code=RDW-SD) 47.8 fL 37.0-51.0 PLATELET COUNT (test code=PLT) 126 K/mm3 150-450 MEAN PLATELET VOLUME (test code=MPV) 10.4 fL 6.7-11.0 IMMATURE GRANULOCYTE % (test code=IG%) 0.4 % 0.0-5.0 NUCLEATED RBC % (test code=NRBC%) 0.0 % 0-0 NEUTROPHIL # (test code=NT#) 2.67 K/mm3 1.8-7.7 IMMATURE GRANULOCYTE # (test code=IG#) 0.02 x10 3/uL 0-0.03 LYMPHOCYTE # (test code=LY#) 1.42 K/mm3 1.0-5.0 MONOCYTE # (test code=MO#) 0.34 K/mm3 0-0.8 EOSINOPHIL # (test code=EO#) 0.07 K/mm3 0.0-0.5 BASOPHIL # (test code=BA#) 0.02 K/mm3 0.0-0.2 NUCLEATED RBC # (test code=NRBC#) 0.00 K/mm3 0.0-0.1 MANUAL DIFF REQUIRED (test code=MDIFF) YES STAIN ACCEPTABILITY (test code=STN ACCEPTABLE) TOTAL CELLS COUNTED (test code=TCC) #CELLS SEGMENTED NEUTROPHILS (test code=SEG) % 39-69 LYMPHOCYTE (test code=LYMPH) % 25-55 MONOCYTE (test code=MON) % 0-10 EOSINOPHIL (test code=EOS) % 0.0-5.0 MORPHOLOGY COMMENT (test code=MOC) PLATELET ESTIMATE (test code=PLTEST) PLATELET MORPHOLOGY (test code=PLTMORPH) CBC W/MANUAL [id number] 05:21:00* Test Item Value Reference Range Comments WHITE BLOOD CELL (test code=WBC) 4.5 K/mm3 4.5-12.5 RED BLOOD CELL (test code=RBC) 4.11 mill/mm3 4.0-5.8 HEMOGLOBIN (test code=HGB) 12.7 gram/dL 13.0-17.5 HEMATOCRIT (test code=HCT) 39.5 % 42.0-52.0 MEAN CELL VOLUME (test code=MCV) 96.1 fL 80-98 MEAN CELL HGB (test code=MCH) 30.9 picogram 27.0-33.0 MEAN CELL HGB CONCETRATION (test code=MCHC) 32.2 gram/dL 33.0-36.0 RED CELL DISTRIBUTION WIDTH (test code=RDW) 13.5 % 11.6-16.2 RED CELL DISTRIBUTION WIDTH SD (test code=RDW-SD) 47.8 fL 37.0-51.0 PLATELET COUNT (test code=PLT) 126 K/mm3 150-450 MEAN PLATELET VOLUME (test code=MPV) 10.4 fL 6.7-11.0 IMMATURE GRANULOCYTE % (test code=IG%) 0.4 % 0.0-5.0 NUCLEATED RBC % (test code=NRBC%) 0.0 % 0-0 NEUTROPHIL # (test code=NT#) 2.67 K/mm3 1.8-7.7 IMMATURE GRANULOCYTE # (test code=IG#) 0.02 x10 3/uL 0-0.03 LYMPHOCYTE # (test code=LY#) 1.42 K/mm3 1.0-5.0 MONOCYTE # (test code=MO#) 0.34 K/mm3 0-0.8 EOSINOPHIL # (test code=EO#) 0.07 K/mm3 0.0-0.5 BASOPHIL # (test code=BA#) 0.02 K/mm3 0.0-0.2 NUCLEATED RBC # (test code=NRBC#) 0.00 K/mm3 0.0-0.1 MANUAL DIFF REQUIRED (test code=MDIFF) YES STAIN ACCEPTABILITY (test code=STN ACCEPTABLE) TOTAL CELLS COUNTED (test code=TCC) #CELLS SEGMENTED NEUTROPHILS (test code=SEG) % 39-69 LYMPHOCYTE (test code=LYMPH) % 25-55 MONOCYTE (test code=MON) % 0-10 MORPHOLOGY COMMENT (test code=MOC) PLATELET ESTIMATE (test code=PLTEST) PLATELET MORPHOLOGY (test code=PLTMORPH) CBC W/MANUAL [id number] 05:21:00* Test Item Value Reference Range Comments WHITE BLOOD CELL (test code=WBC) 4.5 K/mm3 4.5-12.5 RED BLOOD CELL (test code=RBC) 4.11 mill/mm3 4.0-5.8 HEMOGLOBIN (test code=HGB) 12.7 gram/dL 13.0-17.5 HEMATOCRIT (test code=HCT) 39.5 % 42.0-52.0 MEAN CELL VOLUME (test code=MCV) 96.1 fL 80-98 MEAN CELL HGB (test code=MCH) 30.9 picogram 27.0-33.0 MEAN CELL HGB CONCETRATION (test code=MCHC) 32.2 gram/dL 33.0-36.0 RED CELL DISTRIBUTION WIDTH (test code=RDW) 13.5 % 11.6-16.2 RED CELL DISTRIBUTION WIDTH SD (test code=RDW-SD) 47.8 fL 37.0-51.0 PLATELET COUNT (test code=PLT) 126 K/mm3 150-450 MEAN PLATELET VOLUME (test code=MPV) 10.4 fL 6.7-11.0 IMMATURE GRANULOCYTE % (test code=IG%) 0.4 % 0.0-5.0 NUCLEATED RBC % (test code=NRBC%) 0.0 % 0-0 NEUTROPHIL # (test code=NT#) 2.67 K/mm3 1.8-7.7 IMMATURE GRANULOCYTE # (test code=IG#) 0.02 x10 3/uL 0-0.03 LYMPHOCYTE # (test code=LY#) 1.42 K/mm3 1.0-5.0 MONOCYTE # (test code=MO#) 0.34 K/mm3 0-0.8 EOSINOPHIL # (test code=EO#) 0.07 K/mm3 0.0-0.5 BASOPHIL # (test code=BA#) 0.02 K/mm3 0.0-0.2 NUCLEATED RBC # (test code=NRBC#) 0.00 K/mm3 0.0-0.1 MANUAL DIFF REQUIRED (test code=MDIFF) YES STAIN ACCEPTABILITY (test code=STN ACCEPTABLE) TOTAL CELLS COUNTED (test code=TCC) #CELLS SEGMENTED NEUTROPHILS (test code=SEG) % 39-69 LYMPHOCYTE (test code=LYMPH) % 25-55 MONOCYTE (test code=MON) % 0-10 EOSINOPHIL (test code=EOS) % 0.0-5.0 CABOT RINGS (test code=CAB) MORPHOLOGY COMMENT (test code=MOC) PLATELET ESTIMATE (test code=PLTEST) PLATELET MORPHOLOGY (test code=PLTMORPH) - CTA [id number] 01:16:00 Name: [place] : 1955 Age/S: 63 / M [address] [facility] Unit #: [id number] Loc: [place] [address] Phys: Patti Gordon MD Acct: [id number] Dis Date: Status: ADM IN PHONE #: [phone] Exam Date: 12/26/2018 8805 FAX #: [phone] Reason: syncope EXAMS: CPT CODE: [id number] CTA HEAD 90426 HISTORY: Syncope Technique: Axial tomograms through the brain were obtained after intravenous contrast utilizing a CTA protocol. Three- dimensional and multiplanar reformatted images are provided. One or more of the following dose reduction techniques were used: Automated exposure control, adjustment of the mA and/or kV according to patient size, and/or utilization of iterative reconstruction technique. Location: C3 COMPARISON:None FINDINGS: CTA BRAIN: The visualized intracranial internal carotid arteries are patent. The anterior cerebral arteries and middle cerebral arteries are patent bilaterally. No aneurysm identified. No large vessel occlusion or significant intracranial stenosis. An anterior communicating artery is demonstrated. The distal vertebral arteries, basilar artery, and posterior cerebral arteries are patent. The major intracranial venous sinuses are patent. IMPRESSION: 1. No large vessel occlusion. No significant intracranial vascular abnormality identified. at 0116 Reported and signed by: Terrence Whitfield MD CC: Patti Gordon MD; Sharon Anderson MD; Terrence Whelan Technologist:RT ISSA CTDI: DLP: Trnscb Date/Time: 12/27/2018 (0116) [email or web address] Orig Print D/T: S: 12/27/2018 (0119) CTDI: DLP: PAGE 1 Signed Report [id number] 18:42:00* Test Item Value Reference Range Comments TROPONIN-I (test code=TROPI) 0.198 ng/mL 0-0.045 [id number] 13:47:00* Test Item Value Reference Range Comments TROPONIN-I (test code=TROPI) 0.072 ng/mL 0-0.045 [email or web address].KNG1 12/26/18 1346Critical results verified and read back by Nurse? Y [id number] 07:17:00* Test Item Value Reference Range Comments TROPONIN-I (test code=TROPI) 0.062 ng/mL 0-0.045 Results previously called [id number] 02:53:00* Test Item Value Reference Range Comments TROPONIN-I (test code=TROPI) 0.061 ng/mL 0-0.045 PREVIOUSLY CALLED BASIC METABOLIC [id number] 02:30:00* Test Item Value Reference Range Comments SODIUM (test code=NA) 139 mmol/L 136-145 POTASSIUM (test code=K) 4.8 mmol/L 3.5-5.1 CHLORIDE (test code=CL) 110.0 mmol/L 98-107 CARBON DIOXIDE (test code=CO2) 25.0 mmol/L 21-32 ANION GAP (test code=GAP) 8.8 10-20 GLUCOSE (test code=GLU) 123 mg/dL 74-106 BLOOD UREA NITROGEN (test code=BUN) 19 mg/dL 7-18 GLOMERULAR FILTRATION RATE (test code=GFR) > 60 mL/min >=60 Estimated GFR by using Modified MDRD formula.Chronic kidney disease is defined as either kidney damageor GFR <60 mL/min/1.73 m2 for >3 months. CREATININE (test code=CREAT) 1.00 mg/dL 0.7-1.3 BUN/CREATININE RATIO (test code=BUN/CREA) 19.0 10-20 CALCIUM (test code=CA) 7.1 mg/dL 8.5-10.1 CBC W/AUTO [id number] 02:03:00* Test Item Value Reference Range Comments WHITE BLOOD CELL (test code=WBC) 4.9 K/mm3 4.5-12.5 RED BLOOD CELL (test code=RBC) 3.97 mill/mm3 4.0-5.8 HEMOGLOBIN (test code=HGB) 12.1 gram/dL 13.0-17.5 RESULT VERIFIED BY REPEAT ANALYSIS HEMATOCRIT (test code=HCT) 39.5 % 42.0-52.0 MEAN CELL VOLUME (test code=MCV) 99.5 fL 80-98 MEAN CELL HGB (test code=MCH) 30.5 picogram 27.0-33.0 MEAN CELL HGB CONCETRATION (test code=MCHC) 30.6 gram/dL 33.0-36.0 RED CELL DISTRIBUTION WIDTH (test code=RDW) 13.7 % 11.6-16.2 RED CELL DISTRIBUTION WIDTH SD (test code=RDW-SD) 50.6 fL 37.0-51.0 PLATELET COUNT (test code=PLT) 143 K/mm3 150-450 MEAN PLATELET VOLUME (test code=MPV) 10.5 fL 6.7-11.0 NEUTROPHIL % (test code=NT%) 72.2 % 39.0-69.0 IMMATURE GRANULOCYTE % (test code=IG%) 0.4 % 0.0-5.0 LYMPHOCYTE % (test code=LY%) 18.5 % 25.0-55.0 MONOCYTE % (test code=MO%) 7.7 % 0.0-10.0 EOSINOPHIL % (test code=EO%) 1.0 % 0.0-5.0 BASOPHIL % (test code=BA%) 0.2 % 0.0-1.0 NUCLEATED RBC % (test code=NRBC%) 0.0 % 0-0 NEUTROPHIL # (test code=NT#) 3.55 K/mm3 1.8-7.7 IMMATURE GRANULOCYTE # (test code=IG#) 0.02 x10 3/uL 0-0.03 LYMPHOCYTE # (test code=LY#) 0.91 K/mm3 1.0-5.0 MONOCYTE # (test code=MO#) 0.38 K/mm3 0-0.8 EOSINOPHIL # (test code=EO#) 0.05 K/mm3 0.0-0.5 BASOPHIL # (test code=BA#) 0.01 K/mm3 0.0-0.2 NUCLEATED RBC # (test code=NRBC#) 0.00 K/mm3 0.0-0.1 DRUGS OF ABUSE SCREEN [id number] 19:28:00* Test Item Value Reference Range Comments UA PH DIPSTICK (test code=MASHA) 5.0 5.0-8.0 URN COCAINE (test code=COCAURN) NEGATIVE <300 ng/mL URN CANNABINOIDS (test code=CANNABURN) NEGATIVE <50 ng/mL URN AMPHETAMINE (test code=AMPHETURN) NEGATIVE <1000 ng/mL URN BARBITURATE (test code=BARBITURN) NEGATIVE <200 ng/mL URN BENZODIAZEPINE (test code=BENZOURN) NEGATIVE <200 ng/mL URN OPIATES (test code=OPIATURN) NEGATIVE <300 ng/mL URN PHENCYCLIDINE (PCP) (test code=PHENCURN) NEGATIVE <25 ng/mL URN METHADONE (test code=METHAURN) POSITIVE <300 ng/mL This test provides only a preliminary test result. A morespecific alternate chemical method must be used in order toobtain a confirmed analytical result. Gas chromatography/mass spectrometry (GC/MS) is thepreferred confirmatory method. Other chemical confirmationmethods are available. Clinical consideration and professional judgment should be applied to any drug of abusetest result, particularly when preliminary positive resultsare used.Unconfirmed screening results must not be used fornon-medical purposes (e.g., employment testing, legaltesting). [id number] 19:10:00* Test Item Value Reference Range Comments TROPONIN-I (test code=TROPI) 0.053 ng/mL 0-0.045 Results called to [id number] by [facility]. 12/25/18 1910Critical results verified and read back by Nurse? Y DRUGS OF ABUSE SCREEN [id number] 19:01:00* Test Item Value Reference Range Comments UA PH DIPSTICK (test code=MASHA) 5.0 5.0-8.0 URN COCAINE (test code=COCAURN) <300 ng/mL URN CANNABINOIDS (test code=CANNABURN) <50 ng/mL URN AMPHETAMINE (test code=AMPHETURN) <1000 ng/mL URN BARBITURATE (test code=BARBITURN) <200 ng/mL URN BENZODIAZEPINE (test code=BENZOURN) <200 ng/mL URN OPIATES (test code=OPIATURN) <300 ng/mL URN PHENCYCLIDINE (PCP) (test code=PHENCURN) <25 ng/mL URN METHADONE (test code=METHAURN) <300 ng/mL [id number] 18:55:00* Test Item Value Reference Range Comments GLYCOSYLATED HEMOGLOBIN (HA1C) (test code=GLYHGB) 5.9 % HbA1 4.8-6.0 ESTIMATED AVERAGE GLUCOSE (test code=EAG) 123 MG/DL URINALYSIS [id number] 16:21:00* Test Item Value Reference Range Comments UA COLOR (test code=COLU) JEWELL YELLOW UA APPEARANCE (test code=APPU) Cloudy CLEAR UA GLUCOSE DIPSTICK (test code=DGLUU) NEGATIVE mg/dL NEGATIVE UA BILIRUBIN DIPSTICK (test code=BILU) 1+ (Small 0.5-1.0) mg/dL NEGATIVE UA KETONE DIPSTICK (test code=KETU) 5 (Trace) mg/dL NEGATIVE UA SPECIFIC GRAVITY (test code=SGU) 1.025 1.001-1.035 UA BLOOD DIPSTICK (test code=HO) Negative NEGATIVE UA PH DIPSTICK (test code=MASHA) 5.0 5.0-8.0 UA PROTEIN DIPSTICK (test code=PROU) 100 (2+) mg/dL NEGATIVE UA UROBILINIOGEN DIPSTICK (test code=URO) 4.0 mg/dL 0.0-0.2 UA NITRITE DIPSTICK (test code=RANDAL) NEGATIVE NEGATIVE UA LEUKOCYTE ESTERASE W REFLEX (test code=LEUUR) TRACE NEGATIVE UA WBC (test code=WBCU) 11-20 #/HPF 0-5 UA RBC (test code=RBCU) 11-20 #/HPF 0-5 UA EPITHELIAL CELLS (test code=EPIU) FEW per HPF FEW UA BACTERIA (test code=BACU) FEW #/HPF NONE UA HYALINE CAST (test code=HYALU) 11-20 #/LPF 0-5 UA MUCUS (test code=MUCU) FEW #/LPF FEW UA AMORPHOUS SEDIMENT (test code=AMORU) FEW #/LPF Urine Source? Clean CatchB-TYPE NATRIURETIC [id number] 13:44:00* Test Item Value Reference Range Comments B-TYPE NATRIURETIC PEPTIDE (test code=BNP) 58.26 pgram/mL 0-100 BASIC METABOLIC [id number] 13:43:00* Test Item Value Reference Range Comments SODIUM (test code=NA) 139 mmol/L 136-145 POTASSIUM (test code=K) 4.0 mmol/L 3.5-5.1 CHLORIDE (test code=CL) 105.0 mmol/L 98-107 CARBON DIOXIDE (test code=CO2) 28.0 mmol/L 21-32 ANION GAP (test code=GAP) 10.0 10-20 GLUCOSE (test code=GLU) 114 mg/dL 74-106 BLOOD UREA NITROGEN (test code=BUN) 22 mg/dL 7-18 GLOMERULAR FILTRATION RATE (test code=GFR) 52 mL/min >=60 Estimated GFR by using Modified MDRD formula.Chronic kidney disease is defined as either kidney damageor GFR <60 mL/min/1.73 m2 for >3 months. CREATININE (test code=CREAT) 1.40 mg/dL 0.7-1.3 BUN/CREATININE RATIO (test code=BUN/CREA) 15.7 10-20 CALCIUM (test code=CA) 8.5 mg/dL 8.5-10.1 HEPATIC FUNCTION [id number] 13:43:00* Test Item Value Reference Range Comments TOTAL PROTEIN (test code=PROT) 6.4 gram/dL 6.4-8.2 ALBUMIN (test code=ALB) 3.3 g/dL 3.4-5.0 GLOBULIN (test code=GLOB) 3.1 gram/dL 2.7-4.2 ALBUMIN/GLOBULIN RATIO (test code=A/G) 1.1 0.75-1.50 BILIRUBIN TOTAL (test code=BILT) 0.50 mg/dL 0.0-1.0 BILIRUBIN DIRECT (test code=BILD) 0.20 mg/dL 0.0-0.20 SGOT/AST (test code=AST) 31 IUnit/L 15-37 SGPT/ALT (test code=ALT) 36 IUnit/L 12-78 ALKALINE PHOSPHATASE TOTAL (test code=ALKP) 90 IUnit/L 45-117 Note change in reference range due to change in reagent. CREATINE KINASE (CK)2018-12-25 13:43:00* Test Item Value Reference Range Comments CREATINE KINASE (CK) (test code=CK) 148 IUnit/L 26-208 [id number] 13:43:00* Test Item Value Reference Range Comments LIPASE (test code=LIP) 44 U/L 73.0-393.0 [id number] 13:43:00* Test Item Value Reference Range Comments MAGNESIUM (test code=MAG) 1.8 mg/dL 1.8-2.4 [id number] 13:43:00* Test Item Value Reference Range Comments TROPONIN-I (test code=TROPI) 0.026 ng/mL 0-0.045 [id number] 13:43:00* Test Item Value Reference Range Comments ALCOHOL (test code=ALC) < 3 mg/dL 0.0-3.0 INTERPRETIVE DATA NOTE: POSITIVE SCREENING RESULTS SHOULD BE CONSIDERED PRESUMPTIVE.WHEN COLLECTED FOR MEDICAL PURPOSES ONLY. SPECIMEN WILL NOTBE COLLECTED BY CHAIN OF CUSTODY.IF A CONFIRMATION OF POSITIVE RESULTS IS DESIRED, ACONFIRMATION TEST MUST BE REQUESTED BY THE PHYSICIAN AT ANADDITIONAL CHARGE TO THE PATIENT. PROTHROMBIN [id number] 13:33:00* Test Item Value Reference Range Comments PROTHROMBIN TIME PATIENT (test code=PTP) 12.4 seconds 9.0-14.0 INTERNATIONAL NORMAL RATIO (test code=INR) 1.1 0.8-1.2 The therapeutic range for oral anticoagulant therapy formost indications is an international normalized ratio (INR)of between 2.0 and 3.0. The recommended therapeutic INRrange for various clinical situations is listed below: Clinical Situation INR range Pulmonary e mbolism treatment (2.0-3.0)Venous thrombosis treatmentVenous thrombosis prophylaxis (high risk surgery)Prevention of systemic embolism from: Acute myocardial infarction Valvular heart disease Atrial fibrillation Mechanical prosthetic heart valves (2.5-3.5) IS PATIENT ON ANTICOAGULANTS? NTHROMBOPLASTIN TIME [id number] 13:33:00* Test Item Value Reference Range Comments THROMBOPLASTIN TIME PARTIAL (test code=PTT) 28.5 seconds 25.0-36.5 IS PATIENT ON ANTICOAGULANTS? NBASIC METABOLIC [id number] 13:29:00* Test Item Value Reference Range Comments SODIUM (test code=NA) 139 mmol/L 136-145 POTASSIUM (test code=K) 4.0 mmol/L 3.5-5.1 CHLORIDE (test code=CL) 105.0 mmol/L 98-107 CARBON DIOXIDE (test code=CO2) mmol/L 21-32 ANION GAP (test code=GAP) 10-20 GLUCOSE (test code=GLU) mg/dL 74-106 BLOOD UREA NITROGEN (test code=BUN) mg/dL 7-18 GLOMERULAR FILTRATION RATE (test code=GFR) mL/min >=60 CREATININE (test code=CREAT) mg/dL 0.7-1.3 BUN/CREATININE RATIO (test code=BUN/CREA) 10-20 CALCIUM (test code=CA) mg/dL 8.5-10.1 HEPATIC FUNCTION [id number] 13:29:00* Test Item Value Reference Range Comments TOTAL PROTEIN (test code=PROT) gram/dL 6.4-8.2 ALBUMIN (test code=ALB) g/dL 3.4-5.0 GLOBULIN (test code=GLOB) gram/dL 2.7-4.2 ALBUMIN/GLOBULIN RATIO (test code=A/G) 0.75-1.50 BILIRUBIN TOTAL (test code=BILT) mg/dL 0.0-1.0 BILIRUBIN DIRECT (test code=BILD) mg/dL 0.0-0.20 SGOT/AST (test code=AST) IUnit/L 15-37 SGPT/ALT (test code=ALT) IUnit/L 12-78 ALKALINE PHOSPHATASE TOTAL (test code=ALKP) IUnit/L 45-117 CREATINE KINASE (CK)2018-12-25 13:29:00* Test Item Value Reference Range Comments CREATINE KINASE (CK) (test code=CK) IUnit/L 26-208 [id number] 13:29:00* Test Item Value Reference Range Comments LIPASE (test code=LIP) U/L 73.0-393.0 [id number] 13:29:00* Test Item Value Reference Range Comments MAGNESIUM (test code=MAG) mg/dL 1.8-2.4 [id number] 13:29:00* Test Item Value Reference Range Comments TROPONIN-I (test code=TROPI) ng/mL 0-0.045 [id number] 13:29:00* Test Item Value Reference Range Comments ALCOHOL (test code=ALC) mg/dL 0-3 CBC W/O [id number] 13:20:00* Test Item Value Reference Range Comments WHITE BLOOD CELL (test code=WBC) 8.4 K/mm3 4.5-12.5 RED BLOOD CELL (test code=RBC) 4.69 mill/mm3 4.0-5.8 HEMOGLOBIN (test code=HGB) 14.3 gram/dL 13.0-17.5 HEMATOCRIT (test code=HCT) 45.5 % 42.0-52.0 MEAN CELL VOLUME (test code=MCV) 97.0 fL 80-98 MEAN CELL HGB (test code=MCH) 30.5 picogram 27.0-33.0 MEAN CELL HGB CONCETRATION (test code=MCHC) 31.4 gram/dL 33.0-36.0 RED CELL DISTRIBUTION WIDTH (test code=RDW) 13.5 % 11.6-16.2 PLATELET COUNT (test code=PLT) 165 K/mm3 150-450 MEAN PLATELET VOLUME (test code=MPV) 10.0 fL 6.7-11.0 - XR CHEST 1 [id number] 13:06:00 FAX: Debbie Pratt [phone] [place]: St: REG FAX: Terrence Espinoza [phone] Name: ANT VELARDE [facility] : 1955 Age/S: 63/M [address] [facility] Unit #: [id number] Loc: [place] [address] Phys: Debbie Arredondo MD Acct: [id number] Dis Date: Status: REG ER PHONE #: [phone] Exam Date: 12/25/2018 1248 FAX #: [phone] Reason: WEAKNESS EXAMS: CPT CODE: [id number] XR CHEST 1 V [id number] HISTORY: Weakness. COMPARISON: December 07, 2018. No acute infiltrates, effusion or congestion is noted. Hyperinflation. Cardiomegaly. IMPRESSION: No acute infiltrates, effusion or congestion. at 1303 Reported and signed by: Christian Mcmillan M.D. CC: Debbie Arredondo MD; Terrence Whelan Technologist: ARMIN ABREU (R) Trnscrd Date/Time/By: 12/25/2018 (9950) : By: [email or web address] Orig Print D/T: S: 12/25/2018 (3484) PAGE 1 Signed Report PROTHROMBIN TIME 2018-12-08 07:50:00* Test Item Value Reference Range Comments PROTHROMBIN TIME PATIENT (test code=PTP) 12.1 SECONDS 9.3-12.9 INTERNATIONAL NORMAL RATIO (test code=INR) 1.1 0.8-1.2 TARGET INR BY INDICATION Indication INR1. Prophylaxis of venous thrombosis 2.0 - 3.0 (orthopedic surgery), Prophylaxis of venous thrombosis (other than high-risk surgery), Treatment of Deep Vein Thrombosis/Pulmonary Embolism, Prevention of systemic embolism - Tissue heart valves, Acute Myocardial Infarction (to prevent systemic embolism), Valvular heart disease, Atrial Fibrillation, Bileaflet mechanical valve in aortic position.2. Mechanical prosthetic valves (high risk), 2.5 - 3.5 Presence of Lupus Anticoagulant or Antiphospholipid Antibodies, Prevention of systemic embolism - Acute Myocardial Infarction (to prevent recurrent infarct). - XR CHEST 2 [id number] 11:27:00 FAX: Terrence Espinoza [phone] [place]: St: PRE FAX: Bianca Palm FAX: Nikolas Marte MD [phone] Name: PRACHIANT PARK [facility] : 1955 Age/S: 63/M [address] [place] [address] Unit #: [id number] Loc: [place] [address] Phys: Bianca Palm NP Acct: [id number] Dis Date: Status: PRE [facility] [place] #: [phone] Exam Date: 12/07/2018 1122 FAX #: [phone] Reason: PRE-OP EXAMS: CPT CODE: [id number] XR CHEST 2 V 88994 CHEST RADIOGRA PHS - PA AND LATERAL: COMPARISON: November 17, 2018 CLINICAL HISTORY: PRE-OP The cardiopericardial silhouette is with in normal limits. No acute infiltrate is seen in the lungs. There are a few old healed right-sided rib fractures. Min imal contour bulge in the left lower lobe retrocardiac region is again see n. This may be due to a tiny hiatal hernia versus spondylotic changes in t he lower thoracic spine. IMPRESSION: No acute pulmonary abnormality. Please see above for details. at 1127 Reported and signed by: Gabriele Barragan M.D. CC: Terrence Whelan; Bianca Palm STORE SALES CONSULTANT; Nikolas Madrigal MD Technologist: RT Taz(Sergio)(M) Trnscrd Date/Time/By: 12/07/2018 (1127) : By: [email or web address] Orig Print D/T: S: 12/07/2018 (8689) PAGE 1 Signed Report BASIC METABOLIC [id number] 11:06:00* Test Item Value Reference Range Comments SODIUM (test code=NA) 142 mEq/L 134-147 POTASSIUM (test code=K) 4.0 mEq/L 3.4-5.0 CHLORIDE (test code=CL) 108 mEq/L 100-108 CARBON DIOXIDE (test code=CO2) 31 mEq/L 21-33 ANION GAP (test code=GAP) 7 0-20 GLUCOSE (test code=GLU) 86 mg/dL 70-110 BLOOD UREA NITROGEN (test code=BUN) 20 mg/dL 7-18 GLOMERULAR FILTRATION RATE (test code=GFR) 98.3 80-90 Units of measure=ml/min/1.73 m2 CREATININE (test code=CREAT) 0.8 mg/dL 0.6-1.3 CALCIUM (test code=CA) 8.6 mg/dL 8.0-10.5 CBC W/AUTO [id number] 10:51:00* Test Item Value Reference Range Comments WHITE BLOOD CELL (test code=WBC) 7.45 x10 3/uL 4.5-11.0 RED BLOOD CELL (test code=RBC) 4.64 x10 6/uL 4.00-5.60 HEMOGLOBIN (test code=HGB) 14.7 g/dL 12.5-16.9 HEMATOCRIT (test code=HCT) 45.9 % 37.5-50.7 MEAN CELL VOLUME (test code=MCV) 98.9 fL 81.0-99.0 MEAN CELL HGB (test code=MCH) 31.7 pg 27.0-33.0 MEAN CELL HGB CONCETRATION (test code=MCHC) 32.0 g/dL 33.0-37.0 RED CELL DISTRIBUTION WIDTH CV (test code=RDW) 12.9 % 11.5-14.5 RED CELL DISTRIBUTION WIDTH SD (test code=RDW-SD) 46.3 fL 37.0-54.0 PLATELET COUNT (test code=PLT) 210 x10 3/uL 150-400 MEAN PLATELET VOLUME (test code=MPV) 9.9 fL 7.0-9.0 NEUTROPHIL % (test code=NT%) 49.0 % 56.0-77.0 IMMATURE GRANULOCYTE % (test code=IG%) 0.5 % 0.0-2.0 LYMPHOCYTE % (test code=LY%) 33.7 % 14.0-32.0 MONOCYTE % (test code=MO%) 11.4 % 4.8-9.0 EOSINOPHIL % (test code=EO%) 4.6 % 0.3-3.7 BASOPHIL % (test code=BA%) 0.8 % 0.0-2.0 NUCLEATED RBC % (test code=NRBC%) 0.0 % 0-0 NEUTROPHIL # (test code=NT#) 3.65 x10 3/uL 2.0-7.6 IMMATURE GRANULOCYTE # (test code=IG#) 0.04 x10 3/uL 0.00-0.03 LYMPHOCYTE # (test code=LY#) 2.51 x10 3/uL 1.0-3.8 MONOCYTE # (test code=MO#) 0.85 x10 3/uL 0.1-0.8 EOSINOPHIL # (test code=EO#) 0.34 x10 3/uL 0.0-0.2 BASOPHIL # (test code=BA#) 0.06 x10 3/uL 0.0-0.2 NUCLEATED RBC # (test code=NRBC#) 0.00 x10 3/uL 0.0-0.1 MANUAL DIFF REQUIRED (test code=MDIFF) NO COAGULATION TIME [id number] 09:00:00* Test Item Value Reference Range Comments COAGULATION TIME ACTIVATED (test code=ACT) 442 SECONDS 105-167 COAGULATION TIME [id number] 09:00:00* Test Item Value Reference Range Comments COAGULATION TIME ACTIVATED (test code=ACT) 195 SECONDS 105-167 BASIC METABOLIC [id number] 08:53:00* Test Item Value Reference Range Comments SODIUM (test code=NA) 143 mEq/L 134-147 POTASSIUM (test code=K) 4.6 mEq/L 3.4-5.0 CHLORIDE (test code=CL) 107 mEq/L 100-108 CARBON DIOXIDE (test code=CO2) 33 mEq/L 21-33 ANION GAP (test code=GAP) 8 0-20 GLUCOSE (test code=GLU) 108 mg/dL 70-110 BLOOD UREA NITROGEN (test code=BUN) 19 mg/dL 7-18 GLOMERULAR FILTRATION RATE (test code=GFR) 85.8 80-90 Units of measure=ml/min/1.73 m2 CREATININE (test code=CREAT) 0.9 mg/dL 0.6-1.3 CALCIUM (test code=CA) 9.8 mg/dL 8.0-10.5 - XR CHEST 2 [id number] 08:53:00 FAX: Terrence Espinoza [phone] [place]: St: [facility] FAX: Aayush Bassett MD [phone] Name: PRACHIANT VIVIAN [facility] : 1955 Age/S: 63/M [address] [place] [address] Unit #: [id number] Loc: [place] [address] Phys: Aayush Norman MD Acct: [id number] Dis Date: Status: [facility] PHONE #: [phone] Exam Date: 11/17/2018 0846 FAX #: [phone] Reason: PREOP EXAMS: CPT CODE: [id number] XR CHEST 2 V 00839 CHEST RADIOGRAPHS - PA AND LATERAL: COMPARISON: None CLINICAL HISTORY: PREOP The cardiopericardial silhouette is within normal limits. No acute infiltrate is seen in the lungs. No vascular congestion or pneumothorax. There are old fractures involving the posterior right eighth and ninth ribs. A small 3 cm contour bulge/soft tissue density is seen in the left lower lobe retrocardiac region, adjacent to the lower thoracic spine. This may represent a small hiatal hernia. IMPRESSION: No acute pulmonary abnormality. Small retrocardiac soft tissue density which may represent a small hiatal hernia. If clinically indicated, consider CT chest for further assessment. at 0853 Reported and signed by: Gabriele Barragan M.D. CC: Terrence Whelan; Aayush Norman MD Technologist: RT Janet(R) Trnscrd Date/Time/By: 11/17/2018 (0853) : By: [email or web address] Orig Print D/T: S: 11/17/2018 (0856) PAGE 1 Signed Report - XR CHEST 2 [id number] 08:53:00 FAX: Terrence Espinoza [phone] [place]: St: PRE FAX: Aayush Bassett MD [phone] Name: KRISH VELARDE [facility] : 1955 Age/S: 63/M [address] [place] [address] Unit #: [id number] Loc: [place] [address] Phys: Aayush Norman MD Acct: [id number] Dis Date: Status: PRE [facility] [place]ONE #: [phone] Exam Date: 11/17/2018 0846 FAX #: [phone] Reason: PREOP EXAMS: CPT CODE: [id number] XR CHEST 2 V 23925 CHEST RADIOGRAPHS - PA AND LATERAL: COMPARISON: None CLINICAL HISTORY: PREOP The cardiopericardial silhouette is within normal limits. No acute infiltrate is seen in the lungs. No vascular congestion or pneumothorax. There are old fractures involving the posterior right eighth and ninth ribs. A small 3 cm contour bulge/soft tissue density is seen in the left lower lobe retrocardiac region, adjacent to the lower thoracic spine. This may represent a small hiatal hernia. IMPRESSION: No acute pulmonary abnormality. Small retrocardiac soft tissue density which may represent a small hiatal hernia. If clinically indicated, consider CT chest for further assessment. at 0853 Reported and signed by: Gabriele Barragan M.D. CC: Terrence Whelan; Aayush Norman MD Technologist: RT Janet(R) Trnscrd Date/Time/By: 11/17/2018 (0853) : By: [email or web address] Orig Print D/T: S: 11/17/2018 (0856) PAGE 1 Signed Report PROTHROMBIN [id number] 08:49:00* Test Item Value Reference Range Comments PROTHROMBIN TIME PATIENT (test code=PTP) 10.4 SECONDS 9.3-12.9 INTERNATIONAL NORMAL RATIO (test code=INR) 0.9 0.8-1.2 TARGET INR BY INDICATION Indication INR1. Prophylaxis of venous thrombosis 2.0 - 3.0 (orthopedic surgery), Prophylaxis of venous thrombosis (other than high-risk surgery), Treatment of Deep Vein Thrombosis/Pulmonary Embolism, Prevention of systemic embolism - Tissue heart valves, Acute Myocardial Infarction (to prevent systemic embolism), Valvular heart disease, Atrial Fibrillation, Bileaflet mechanical valve in aortic position.2. Mechanical prosthetic valves (high risk), 2.5 - 3.5 Presence of Lupus Anticoagulant or Antiphospholipid Antibodies, Prevention of systemic embolism - Acute Myocardial Infarction (to prevent recurrent infarct). CBC W/AUTO [id number] 08:40:00* Test Item Value Reference Range Comments WHITE BLOOD CELL (test code=WBC) 6.29 x10 3/uL 4.5-11.0 RED BLOOD CELL (test code=RBC) 5.30 x10 6/uL 4.00-5.60 HEMOGLOBIN (test code=HGB) 17.0 g/dL 12.5-16.9 HEMATOCRIT (test code=HCT) 52.9 % 37.5-50.7 MEAN CELL VOLUME (test code=MCV) 99.8 fL 81.0-99.0 MEAN CELL HGB (test code=MCH) 32.1 pg 27.0-33.0 MEAN CELL HGB CONCETRATION (test code=MCHC) 32.1 g/dL 33.0-37.0 RED CELL DISTRIBUTION WIDTH CV (test code=RDW) 12.9 % 11.5-14.5 RED CELL DISTRIBUTION WIDTH SD (test code=RDW-SD) 48.3 fL 37.0-54.0 PLATELET COUNT (test code=PLT) 202 x10 3/uL 150-400 MEAN PLATELET VOLUME (test code=MPV) 10.1 fL 7.0-9.0 NEUTROPHIL % (test code=NT%) 42.3 % 56.0-77.0 IMMATURE GRANULOCYTE % (test code=IG%) 0.2 % 0.0-2.0 LYMPHOCYTE % (test code=LY%) 38.6 % 14.0-32.0 MONOCYTE % (test code=MO%) 10.8 % 4.8-9.0 EOSINOPHIL % (test code=EO%) 6.8 % 0.3-3.7 BASOPHIL % (test code=BA%) 1.3 % 0.0-2.0 NUCLEATED RBC % (test code=NRBC%) 0.0 % 0-0 NEUTROPHIL # (test code=NT#) 2.66 x10 3/uL 2.0-7.6 IMMATURE GRANULOCYTE # (test code=IG#) 0.01 x10 3/uL 0.00-0.03 LYMPHOCYTE # (test code=LY#) 2.43 x10 3/uL 1.0-3.8 MONOCYTE # (test code=MO#) 0.68 x10 3/uL 0.1-0.8 EOSINOPHIL # (test code=EO#) 0.43 x10 3/uL 0.0-0.2 BASOPHIL # (test code=BA#) 0.08 x10 3/uL 0.0-0.2 NUCLEATED RBC # (test code=NRBC#) 0.00 x10 3/uL 0.0-0.1 MANUAL DIFF REQUIRED (test code=MDIFF) NO
[2019-12-19 09:40] VITALS: BP 153/82
--- NOTE | 2019-12-27 23:23 | Operative Report ---
DATE OF PROCEDURE: 12/19/2019 SURGEON: Federico Smith MD PREOPERATIVE DIAGNOSES: 1. Left nephrolithiasis. 2. Left hydronephrosis due to stone. 3. Hematuria. POSTOPERATIVE DIAGNOSES: 1. Left nephrolithiasis. 2. Left hydronephrosis due to stone. 3. Hematuria. 4. Horseshoe kidney. OPERATION PERFORMED: Note, these were all staged procedures as part of multi-staged and multi-step process in managing the patient's urolithiasis. 1. Left-sided extracorporeal shockwave lithotripsy (separate procedure performed for the left nephrolithiasis). 2. Cystourethroscopy with bilateral ureteral catheterization and retrograde ureteropyelography (separate procedure performed for hematuria and to delineate the anatomy of this portion of kidney). 3. Interpretation of retrograde ureteropyelography. 4. Supervision of fluoroscopy, no radiologist present. 5. Cystourethroscopy and insertion of left indwelling ureteral stent (separate procedure performed for the diagnosis of the hydronephrosis). ANESTHESIA: General. COMPLICATIONS: None. CLINICAL SUMMARY: Talon Fields is a complicated 64-year-old man with left nephrolithiasis and horseshoe kidney. He has recurrent stones. He is brought for the above procedures. He is aware of the risks of bleeding, infection, injury to adjacent structures, need for further procedures and elected to proceed. He also understands he will have a temporary indwelling ureteral stent that requires followup and removal. He understood all these risks and elected to proceed. OPERATIVE PROCEDURE IN DETAIL: Informed consent was verified. Talon Fields was properly identified, taken to the operating room, placed on the cystoscopy table in supine position. Anesthesia was uneventfully begun. The patient was then carefully gently repositioned in the dorsal lithotomy position with all pressure points well padded. His genitalia were prepared and draped in usual sterile fashion. The patient's left nephrolithiasis was localized with biplanar fluoroscopy. A total of 3000 shocks were delivered with fragmentation noted. This was a large stone, 11 mm in size. The cystoscope sheath with the visual obturator in place was atraumatically inserted into the patient's urethra and was guided down to unremarkable urethra through the normal sphincteric region through the prostate bed, which was significant for bilobar prostatic hypertrophy with kissing lateral lobes, visual obstruction and elevated median bar. We entered the patient's bladder. Panendoscopy revealed grade 1 trabeculations, but no tumors and no stones. No suspicious lesions. An 8-[place] catheter was used to cannulate each ureter and retrograde ureteropyelograms were performed. Interpretation of retrograde ureteropyelography: Contrast was instilled in retrograde fashion bilaterally. 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 The right side was unremarkable. Calyces were sharp and delicate. There was no hydronephrosis, no obstruction. Left side exhibited hydronephrosis and multiple filling defects from the stone and blood clots as a result of lithotripsy. With cystoscopic and fluoroscopic guidance, a left-sided indwelling ureteral stent was then placed. It was coiled in the patient's kidneys as well as the patient's bladder at the end of the case. The retaining suture was cut short. The patient's bladder was drained. Cystoscope was withdrawn. The belladonna and opium suppository were placed revealing a 30 g prostate that is smooth and non-fluctuant without any nodules. The patient was then uneventfully reversed from anesthesia and taken to recovery room in stable condition. There were no complications to the procedure. He tolerated the procedure well. Explicit postoperative instructions were given. We will follow the patient up in the office. Federico Smith MD [place] /[id number] cc: Terrence Whelan MD
== END | disposition home or self-care (01) ==
LOC: OR 05:42
PROVIDERS: ATTEND Urology
DX: N13.2 Hydronephrosis with renal and ureteral calculous obstruction (principal); Q63.1 Lobulated, fused and horseshoe kidney; N32.89 Other specified disorders of bladder; R80.9 Proteinuria, unspecified; R35.1 Nocturia; R39.14 Feeling of incomplete bladder emptying; Q55.22 Retractile testis; G47.33 Obstructive sleep apnea (adult) (pediatric); J44.9 Chronic obstructive pulmonary disease, unspecified; I25.10 Atherosclerotic heart disease of native coronary artery without angina pectoris; I11.0 Hypertensive heart disease with heart failure; I50.814 Right heart failure due to left heart failure; Z01.810 Encounter for preprocedural cardiovascular examination; Z01.812 Encounter for preprocedural laboratory examination; Z01.818 Encounter for other preprocedural examination; Z79.02 Long term (current) use of antithrombotics/antiplatelets; Z79.82 Long term (current) use of aspirin; Z95.820 Peripheral vascular angioplasty status with implants and grafts; Z87.891 Personal history of nicotine dependence
CPT/HCPCS: 36415; 50590; 52332; 71046; 74018; 85025; 93005; C1758; C2617; J0696; J1100; J2001 ×2; J2250; J2370; J2405; J2704; J3010; Q9967

== ENCOUNTER → 2024-07-25 | Outpatient (REF) | payer MEDICARE ==
[~2024-07-25] MED LIST changes: -ACETAMINOPHEN/CODEINE 300MG - 30MG TAB ONE; -B&O 60MG R/S 60 MG SUPP PR ONE; -CEFTRIAXONE SOD 1 GM/NS 50 ML 50 ML IV ONE; -DEXAMETHASONE SOD PHOS INJ 4 MG/ML VIAL ONE; -EPHEDRINE SULFATE INJ 50 MG/ML VIAL ONE; -FENTANYL CITRATE/PF 100MCG/2 ML INJ ONE; -IOPAMIDOL 300MG/ML 50ML INFUS..BTL IV ONE; -LIDOCAINE HCL 2% JELLY 5 ML TUBE ONE; -LIDOCAINE HCL 2% LOCAL INJ 5 ML SDV VIAL INJ ONE; -MIDAZOLAM HCL 2 MG/2 ML VIAL ONE; -ONDANSETRON HCL INJ 2MG/ML 2ML 2 MG/ML VIAL ONE; -PHENYLEPHRINE HCL 1% 10 MG/ML VIAL ONE; -PROPOFOL IV EMULSION 10 MG/ML 20 ML VIAL ONE
== END ==
LOC: US 14:35
PROVIDERS: ATTEND Urology
DX: N20.0 Calculus of kidney (principal)
CPT/HCPCS: 74018; 76770; 76857

== ENCOUNTER → 2024-08-15 | Outpatient (REF) | payer MEDICARE | LOC: CT 13:51 | PROVIDERS: ATTEND Urology | DX: N20.0 Calculus of kidney (principal) | CPT/HCPCS: 74176 ==

== ENCOUNTER → 2024-09-29 | Day surgery (SDC) | payer MEDICARE ==
[~2024-09-29] MED LIST changes: +ACETAMINOPHEN 1000 MG/100 ML 100 ML IV ONE; +ALBUTEROL0.63 MG/3 NEB; +CIALIS20 MG; +DEXAMETHASONE SOD PHOS INJ 4 MG/ML SDV ONE; +EPHEDRINE SULFATE INJ 50 MG/ML VIAL ONE; +ETHAMBUTOL HCL400 MG PO; +FENTANYL CITRATE/PF 100MCG/2 ML INJ ONE; +FISH OIL 1,0001 EAC7; +FLOMAX0.4 MG PO; +LIDOCAINE HCL 2% LOCAL INJ 5 ML SDV VIAL INJ ONE; +METOCLOPRAM5 MG/5 ML PO; +OMEGA 3 1,0001 EACH PO; +ONDANSETRON HCL INJ 2MG/ML 2ML 2 MG/ML VIAL ONE; +PROPOFOL IV EMULSION 10 MG/ML 20 ML VIAL ONE; +RIFAMPIN300 MG PO; +SEVOFLURANE INHAL SOLN 250 ML PEN BTL ONE; +TESTOSTERONE SHOTS; +TRAZODONE HCL100 MG PO; +TRELEGY ELLIPT1 EACH; +VITAMIN E400 UNI1 PO; +ZITHROMAX500 MG PO
[2024-09-29 06:36] LABS: BASOPHILS # (AUTO) 0.1 (0.0-0.1); EOSINOPHILS # (AUTO) 0.3 (0.0-0.4); EOSINOPHILS % 4.1 % (0.0-6.0); HEMATOCRIT 53.6 % (38.2-49.6); HEMOGLOBIN 16.7 g/dL (14.0-18.0); LYMPHOCYTES % 25.1 % (18.0-39.1); MEAN CORPUSCULAR HEMOGLOBIN 28.9 pg (28-32); MEAN CORPUSCULAR HGB CONC 31.2 g/dL (31-35); MEAN CORPUSCULAR VOLUME 92.7 fL (81-99); MONOCYTES # (AUTO) 0.8 (0.2-0.8); MONOCYTES % 9.6 % (4.4-11.3); NEUTROPHILS # (AUTO) 4.7 (2.1-6.9); NEUTROPHILS % 59.9 % (38.7-80.0); PLATELET COUNT 148 x10e3/uL (140-360); RED BLOOD COUNT 5.78 x10e6/uL (4.3-5.7); RED CELL DISTRIBUTION WIDTH 18.2 % (11.7-14.4); WHITE BLOOD COUNT 7.85 x10e3/uL (4.8-10.8)
[2024-09-29] MEDS: LACTATED RINGER'S 1,000 ML ONE (06:49)
[2024-09-29] MEDS: CEFTRIAXONE 1 GM VIAL ONE (06:50)
[2024-09-29 06:52] LABS: ANION GAP 12.6 mmol/L (8-16); CALCIUM 8.6 mg/dL (8.4-10.2); CREATININE, SERUM 0.92 mg/dL (0.72-1.25); POTASSIUM 3.6 mmol/L (3.5-5.1); URIC ACID 5.6 mg/dL (4.8-8.0)
[2024-09-29 10:14] VITALS: TEMP 98.3
[2024-09-29] MEDS: PHENAZOPYRIDINE HCL 100 MG TAB ONE (10:40)
[2024-09-29 11:05] VITALS: BP 140/88; PULSE 63; RESP 16; O2SAT 99
== END | disposition home or self-care (01) ==
LOC: OR 05:49
PROVIDERS: ATTEND Urology
DX: N20.0 Calculus of kidney (principal); N40.1 Benign prostatic hyperplasia with lower urinary tract symptoms; N13.8 Other obstructive and reflux uropathy; N32.89 Other specified disorders of bladder; Q63.1 Lobulated, fused and horseshoe kidney; R80.9 Proteinuria, unspecified; N20.1 Calculus of ureter; R35.1 Nocturia; R39.14 Feeling of incomplete bladder emptying; Q55.22 Retractile testis; K40.90 Unilateral inguinal hernia, without obstruction or gangrene, not specified as recurrent; I25.10 Atherosclerotic heart disease of native coronary artery without angina pectoris; I10 Essential (primary) hypertension; J45.909 Unspecified asthma, uncomplicated; K21.9 Gastro-esophageal reflux disease without esophagitis; Z79.82 Long term (current) use of aspirin; Z79.02 Long term (current) use of antithrombotics/antiplatelets; Z79.899 Other long term (current) drug therapy; Z87.891 Personal history of nicotine dependence
CPT/HCPCS: 36415; 50590; 52332; 71046; 74018; 80048; 83970; 84550; 85025; 93005; C1758; C1769; C2617; J0131; J0696; J1100; J2003; J2405; J2704; J3010; J7121

== ENCOUNTER 2024-10-20 11:30 | Emergency (ER) | payer MEDICARE ==
[~2024-10-20] VITALS: Ht 182.9 cm; Wt 68.9 kg
[~2024-10-20 11:30] MED LIST changes: -ACETAMINOPHEN 1000 MG/100 ML 100 ML IV ONE; -DEXAMETHASONE SOD PHOS INJ 4 MG/ML SDV ONE; -EPHEDRINE SULFATE INJ 50 MG/ML VIAL ONE; -FENTANYL CITRATE/PF 100MCG/2 ML INJ ONE; -LIDOCAINE HCL 2% LOCAL INJ 5 ML SDV VIAL INJ ONE; -ONDANSETRON HCL INJ 2MG/ML 2ML 2 MG/ML VIAL ONE; -PROPOFOL IV EMULSION 10 MG/ML 20 ML VIAL ONE; -SEVOFLURANE INHAL SOLN 250 ML PEN BTL ONE
[2024-10-20 12:47] LABS: BASOPHILS # (AUTO) 0.1 (0.0-0.1); BASOPHILS % 0.7 % (0.0-1.0); EOSINOPHILS # (AUTO) 0.2 (0.0-0.4); HEMATOCRIT 54.4 % (38.2-49.6); HEMOGLOBIN 17.5 g/dL (14.0-18.0); LYMPHOCYTES # (AUTO) 1.6 (1.0-3.2); LYMPHOCYTES % 17.9 % (18.0-39.1); MEAN CORPUSCULAR HEMOGLOBIN 30.1 pg (28-32); MEAN CORPUSCULAR HGB CONC 32.2 g/dL (31-35); MEAN CORPUSCULAR VOLUME 93.5 fL (81-99); MONOCYTES # (AUTO) 0.6 (0.2-0.8); MONOCYTES % 6.5 % (4.4-11.3); NEUTROPHILS # (AUTO) 6.4 (2.1-6.9); NEUTROPHILS % 72.7 % (38.7-80.0); PLATELET COUNT 153 x10e3/uL (140-360); RED BLOOD COUNT 5.82 x10e6/uL (4.3-5.7); RED CELL DISTRIBUTION WIDTH 17.2 % (11.7-14.4); WHITE BLOOD COUNT 8.79 x10e3/uL (4.8-10.8)
[2024-10-20 13:04] LABS: INR 0.94; PROTHROMBIN TIME 13.2 seconds (11.9-14.5)
[2024-10-20 13:05] LABS: PARTIAL THROMBOPLASTIN TIME 27.4 seconds (23.8-35.5)
[2024-10-20 13:14] LABS: ALBUMIN/GLOBULIN RATIO 1.3 (0.8-2.0); ANION GAP 14.8 mmol/L (8-16); BILIRUBIN,TOTAL 0.8 mg/dL (0.2-1.2); CALCIUM 9.1 mg/dL (8.4-10.2); CREATININE, SERUM 0.82 mg/dL (0.72-1.25); POTASSIUM 3.8 mmol/L (3.5-5.1)
[2024-10-20 13:18] LABS: CLARITY,URINE TURBID (CLEAR); COLOR,URINE RED (YELLOW); GLUCOSE, URINE NEGATIVE (NEGATIVE); KETONES,URINE NEGATIVE (NEGATIVE); LEUKOCYTE ESTERASE ,URINE TRACE (NEGATIVE); NITRITE,URINE NEGATIVE (NEGATIVE); PH,URINE 7 (5 - 7); PROTEIN,URINE DIPSTICK >=300 (NEGATIVE)
[2024-10-20 13:19] LABS: BACTERIA,URINE FEW /HPF; BILIRUBIN,URINE NEGATIVE (NEGATIVE); EPITHELIAL CELLS,URINE FEW /LPF; RBC,URINE >50 /HPF (0-5); WBC,URINE (MAN) 0-5 /HPF (0-5)
[2024-10-20] MEDS ORDERED: ULTRAM 50MG50 MG PO (16:46)
[2024-10-20 17:05] VITALS: PULSE 61; RESP 16; TEMP 98; O2SAT 95
== END 2024-10-20 17:15 | disposition home or self-care (01) ==
LOC: ER 12:01
DX: R31.9 Hematuria, unspecified (principal); R30.0 Dysuria; R10.30 Lower abdominal pain, unspecified; I10 Essential (primary) hypertension; J44.9 Chronic obstructive pulmonary disease, unspecified; Z87.442 Personal history of urinary calculi
CPT/HCPCS: 36415; 51798; 74176; 80053; 81001; 85025; 85610; 85730; 99284

== ENCOUNTER → 2024-11-15 | Day surgery (SDC) | payer MEDICARE ==
[2024-11-13 14:55] LABS: BASOPHILS # (AUTO) 0.1 (0.0-0.1); BASOPHILS % 0.7 % (0.0-1.0); EOSINOPHILS # (AUTO) 0.1 (0.0-0.4); EOSINOPHILS % 1.2 % (0.0-6.0); HEMATOCRIT 49.6 % (38.2-49.6); HEMOGLOBIN 16.8 g/dL (14.0-18.0); LYMPHOCYTES # (AUTO) 1.6 (1.0-3.2); LYMPHOCYTES % 21.5 % (18.0-39.1); MEAN CORPUSCULAR HEMOGLOBIN 30.2 pg (28-32); MEAN CORPUSCULAR HGB CONC 33.9 g/dL (31-35); MEAN CORPUSCULAR VOLUME 89.2 fL (81-99); MONOCYTES # (AUTO) 0.8 (0.2-0.8); MONOCYTES % 10.6 % (4.4-11.3); NEUTROPHILS % 65.7 % (38.7-80.0); PLATELET COUNT 172 x10e3/uL (140-360); RED BLOOD COUNT 5.56 x10e6/uL (4.3-5.7); WHITE BLOOD COUNT 7.55 x10e3/uL (4.8-10.8)
[2024-11-13 15:23] LABS: ANION GAP 14.4 mmol/L (8-16); CALCIUM 8.8 mg/dL (8.4-10.2); CREATININE, SERUM 0.85 mg/dL (0.72-1.25); POTASSIUM 4.4 mmol/L (3.5-5.1)
[~2024-11-15] MED LIST changes: +ACETAMINOPHEN 1000 MG/100 ML 100 ML IV ONE; +CEFTRIAXONE 1 GM VIAL ONE; +DEXAMETHASONE SOD PHOS INJ 4 MG/ML SDV ONE; +EPHEDRINE SULFATE INJ 50 MG/ML VIAL ONE; +FENTANYL CITRATE/PF 100MCG/2 ML INJ ONE; +GENTAMICIN 80MG/NS 100 ML 200 ML IV ONE; +LACTATED RINGER'S 1,000 ML ONE; +LIDOCAINE HCL 2% LOCAL INJ 5 ML SDV VIAL INJ ONE; +ONDANSETRON HCL INJ 2MG/ML 2ML 2 MG/ML VIAL ONE; +PROPOFOL IV EMULSION 10 MG/ML 20 ML VIAL ONE; +SEVOFLURANE INHAL SOLN 250 ML PEN BTL ONE; +ULTRAM 50MG50 MG PO
[2024-11-15 15:39] VITALS: TEMP 97
[2024-11-15] MEDS: PHENAZOPYRIDINE HCL 100 MG TAB ONE (15:46)
[2024-11-15 16:25] VITALS: BP 148/78; PULSE 70; RESP 16; O2SAT 98
== END | disposition home or self-care (01) ==
LOC: OR 10:21
PROVIDERS: ATTEND Urology
DX: N20.0 Calculus of kidney (principal); N20.1 Calculus of ureter; Z46.6 Encounter for fitting and adjustment of urinary device; N40.1 Benign prostatic hyperplasia with lower urinary tract symptoms; N13.8 Other obstructive and reflux uropathy; R35.1 Nocturia; R39.14 Feeling of incomplete bladder emptying; R80.9 Proteinuria, unspecified; Q55.22 Retractile testis; K40.90 Unilateral inguinal hernia, without obstruction or gangrene, not specified as recurrent; I10 Essential (primary) hypertension; E78.5 Hyperlipidemia, unspecified; J44.9 Chronic obstructive pulmonary disease, unspecified; K21.9 Gastro-esophageal reflux disease without esophagitis; M06.9 Rheumatoid arthritis, unspecified; M19.90 Unspecified osteoarthritis, unspecified site; Z01.812 Encounter for preprocedural laboratory examination; Z01.818 Encounter for other preprocedural examination; Z79.02 Long term (current) use of antithrombotics/antiplatelets; Z79.82 Long term (current) use of aspirin; Z79.899 Other long term (current) drug therapy; Z87.891 Personal history of nicotine dependence
CPT/HCPCS: 36415; 52352; 52356; 74018; 74420; 80048; 84550; 85025; 87086; 88300; C1758; C1766; C1769; C2617; J0131; J0696; J1100; J1580; J2003; J2405; J2704; J3010; J7121

== ENCOUNTER → 2024-12-13 | Day surgery (SDC) | payer MEDICARE ==
[~2024-12-13] MED LIST changes: -ACETAMINOPHEN 1000 MG/100 ML 100 ML IV ONE; +BENZOCAINE/TETRACAINE/BUTAMBEN AERO SPRAY 56 GM CAN ONE; -CEFTRIAXONE 1 GM VIAL ONE; -CIALIS20 MG; +CIALIS20 MG PO; -DEXAMETHASONE SOD PHOS INJ 4 MG/ML SDV ONE; -FENTANYL CITRATE/PF 100MCG/2 ML INJ ONE; -GENTAMICIN 80MG/NS 100 ML 200 ML IV ONE; -LACTATED RINGER'S 1,000 ML ONE; +MIDAZOLAM HCL 2 MG/2 ML VIAL ONE; -ONDANSETRON HCL INJ 2MG/ML 2ML 2 MG/ML VIAL ONE; +PROPOFOL IV EMULSION 50 ML IV ONE; -SEVOFLURANE INHAL SOLN 250 ML PEN BTL ONE; -TRELEGY ELLIPT1 EACH; +TRELEGY ELLIPT1 EACH INH
[2024-12-13] MEDS: LACTATED RINGER'S 1,000 ML ONE (10:17)
[2024-12-13 13:04] VITALS: TEMP 97.2
[2024-12-13 13:25] VITALS: BP 125/72; PULSE 63; RESP 18; O2SAT 95
== END | disposition home or self-care (01) ==
LOC: OR 09:23
PROVIDERS: ATTEND Internal Medicine Gastroenterology
DX: R19.5 Other fecal abnormalities (principal); D12.4 Benign neoplasm of descending colon; K31.84 Gastroparesis; K22.70 Barrett's esophagus without dysplasia; K29.50 Unspecified chronic gastritis without bleeding; K29.60 Other gastritis without bleeding; K29.80 Duodenitis without bleeding; K31.89 Other diseases of stomach and duodenum; K21.00 Gastro-esophageal reflux disease with esophagitis, without bleeding; K44.9 Diaphragmatic hernia without obstruction or gangrene; I25.10 Atherosclerotic heart disease of native coronary artery without angina pectoris; I11.0 Hypertensive heart disease with heart failure; I50.9 Heart failure, unspecified; E78.2 Mixed hyperlipidemia; J44.9 Chronic obstructive pulmonary disease, unspecified; G89.29 Other chronic pain; Z79.02 Long term (current) use of antithrombotics/antiplatelets; Z79.82 Long term (current) use of aspirin; Z79.899 Other long term (current) drug therapy; Z99.81 Dependence on supplemental oxygen; Z87.891 Personal history of nicotine dependence
CPT/HCPCS: 43239; 45380; 45384; 88305; J2003; J2250; J2704 ×2; J7121

== ENCOUNTER → 2025-01-10 | Day surgery (SDC) | payer MEDICARE, OTHER ==
[~2025-01-10] MED LIST changes: -BENZOCAINE/TETRACAINE/BUTAMBEN AERO SPRAY 56 GM CAN ONE; +DEXAMETHASONE SOD PHOS INJ 4 MG/ML SDV ONE; +FENTANYL CITRATE/PF 100MCG/2 ML INJ ONE; +KETOROLAC TROMETHAMINE 30 MG/ML VIAL ONE; +LACTATED RINGER'S 1,000 ML ONE; -MIDAZOLAM HCL 2 MG/2 ML VIAL ONE; +ONDANSETRON HCL INJ 2MG/ML 2ML 2 MG/ML VIAL ONE; -PROPOFOL IV EMULSION 50 ML IV ONE; +SEVOFLURANE INHAL SOLN 250 ML PEN BTL ONE; +SODIUM CHLORIDE 0.9% 1000ML 0 ML ONE; +SUCCINYLCHOLINE CHLORIDE 20 MG/ML 10ML VIAL ONE
[2025-01-10 14:28] LABS: BASOPHILS # (AUTO) 0.1 (0.0-0.1); BASOPHILS % 0.8 % (0.0-1.0); EOSINOPHILS # (AUTO) 0.1 (0.0-0.4); EOSINOPHILS % 1.8 % (0.0-6.0); HEMATOCRIT 42.6 % (38.2-49.6); HEMOGLOBIN 14.5 g/dL (14.0-18.0); LYMPHOCYTES # (AUTO) 1.6 (1.0-3.2); LYMPHOCYTES % 20.6 % (18.0-39.1); MEAN CORPUSCULAR HEMOGLOBIN 30.7 pg (28-32); MEAN CORPUSCULAR VOLUME 90.3 fL (81-99); MONOCYTES # (AUTO) 0.7 (0.2-0.8); MONOCYTES % 8.5 % (4.4-11.3); NEUTROPHILS # (AUTO) 5.3 (2.1-6.9); NEUTROPHILS % 68.2 % (38.7-80.0); PLATELET COUNT 181 x10e3/uL (140-360); RED BLOOD COUNT 4.72 x10e6/uL (4.3-5.7); RED CELL DISTRIBUTION WIDTH 13.1 % (11.7-14.4); WHITE BLOOD COUNT 7.78 x10e3/uL (4.8-10.8)
[2025-01-10] MEDS: CEFTRIAXONE 1 GM VIAL ONE (14:36)
[2025-01-10] MEDS: GENTAMICIN 80MG/NS 100 ML 100 ML IV ONE (14:38)
[2025-01-10 15:03] VITALS: PULSE 93; RESP 18; O2SAT 91
[2025-01-10] MEDS: ALBUTEROL/IPRATROPIUM 3 ML NEB ONE (15:03)
[2025-01-10 15:04] LABS: ANION GAP 14.7 mmol/L (8-16); CALCIUM 9.3 mg/dL (8.4-10.2); CREATININE, SERUM 1.02 mg/dL (0.72-1.25); POTASSIUM 4.7 mmol/L (3.5-5.1)
[2025-01-10] MEDS: MEPERIDINE HCL INJ 25 MG/ML VIAL ONE (18:35)
[2025-01-10] MEDS: PHENAZOPYRIDINE HCL 100 MG TAB ONE (18:45)
[2025-01-10 18:50] VITALS: BP 142/78; PULSE 78; RESP 18; O2SAT 96
== END | disposition home or self-care (01) ==
LOC: OR 14:20
PROVIDERS: ATTEND Urology
DX: N20.0 Calculus of kidney (principal); Z46.6 Encounter for fitting and adjustment of urinary device; N35.812 Other bulbous urethral stricture, male; N20.1 Calculus of ureter; N40.1 Benign prostatic hyperplasia with lower urinary tract symptoms; N13.8 Other obstructive and reflux uropathy; R35.1 Nocturia; R39.14 Feeling of incomplete bladder emptying; N32.89 Other specified disorders of bladder; Q63.1 Lobulated, fused and horseshoe kidney; N28.89 Other specified disorders of kidney and ureter; R80.9 Proteinuria, unspecified; Q55.22 Retractile testis; K40.90 Unilateral inguinal hernia, without obstruction or gangrene, not specified as recurrent; I11.0 Hypertensive heart disease with heart failure; I50.9 Heart failure, unspecified; I25.10 Atherosclerotic heart disease of native coronary artery without angina pectoris; J44.9 Chronic obstructive pulmonary disease, unspecified; K21.9 Gastro-esophageal reflux disease without esophagitis; Z79.02 Long term (current) use of antithrombotics/antiplatelets; Z79.82 Long term (current) use of aspirin; Z79.899 Other long term (current) drug therapy; Z87.891 Personal history of nicotine dependence
CPT/HCPCS: 36415; 52352; 74018; 74420; 80048; 84550; 85025; 88300; 93005; 94640; 94799; C1769; J0330; J0696; J1100; J1580; J1885; J2003; J2175; J2405; J2704; J3010; J7121; J7030

== ENCOUNTER → 2025-01-31 | Outpatient (REF) | payer MEDICARE ==
[~2025-01-31] MED LIST changes: -DEXAMETHASONE SOD PHOS INJ 4 MG/ML SDV ONE; -EPHEDRINE SULFATE INJ 50 MG/ML VIAL ONE; -FENTANYL CITRATE/PF 100MCG/2 ML INJ ONE; -KETOROLAC TROMETHAMINE 30 MG/ML VIAL ONE; -LACTATED RINGER'S 1,000 ML ONE; -LIDOCAINE HCL 2% LOCAL INJ 5 ML SDV VIAL INJ ONE; -ONDANSETRON HCL INJ 2MG/ML 2ML 2 MG/ML VIAL ONE; -PROPOFOL IV EMULSION 10 MG/ML 20 ML VIAL ONE; -SEVOFLURANE INHAL SOLN 250 ML PEN BTL ONE; -SODIUM CHLORIDE 0.9% 1000ML 0 ML ONE; -SUCCINYLCHOLINE CHLORIDE 20 MG/ML 10ML VIAL ONE
== END ==
LOC: CT 13:43
PROVIDERS: ATTEND Family Medicine
DX: R06.02 Shortness of breath (principal); J44.9 Chronic obstructive pulmonary disease, unspecified; R63.4 Abnormal weight loss
CPT/HCPCS: 71250